=== PATIENT | female | born 1955 | race Caucasian/White ===

== ENCOUNTER 2018-11-04 11:35 | Inpatient (IN) | payer MEDICARE, OTHER ==
[~2018-11-04] VITALS: Ht 170.2 cm; Wt 53.7 kg
[~2018-11-04 11:35] MED LIST: AMLO5 PO; BACL20; BIOTIN5000 MCG PO; CLON.1; CLON.1 PO; D3; D3-20002000 UNIT PO; DOCU100 PO; FENT50TP TOP; FOLI1 PO; Fentanyl1 EAC2; IRON18 MG PO; LEVSOD150; LEVSOD150 PO; LINZESS145 MCG; LIOT5 PO; LOSA25 PO; MAGOXI400 PO; MIDO5 PO; Micro-K10 MEQ; OXYC10TA19; Oxycodone HCl20 M1 PO; Renal Caps Softg1 MG PO; SOMA350 MG PO; VANCOMYCIN125 MG/2.5 PO; VENL150ER; VENL150ER PO; VIT B 12 IM
[2018-11-04 12:16] LABS: BASOPHILS ABSOLUTE AUTO 0.02 K/mm3 (0.00-0.23); BASOPHILS PERCENT AUTO 0 % (0-2); EOSINOPHILS ABSOLUTE AUTO 0.01 K/mm3 (0.00-0.68); EOSINOPHILS PERCENT AUTO 0 % (0-6); Hematocrit 38.4 % (33.0-51.0); Hemoglobin 12.1 g/dL (11.5-16.0); IMMATURE GRAN ABSOLUTE AUTO 0.01 K/mm3 (0.00-0.10); IMMATURE GRAN PERCENT AUTO 0 % (0-1); LYMPHOCYTES PERCENT AUTO 19 % (21-46); MONOCYTES ABSOLUTE AUTO 0.73 K/mm3 (0.16-1.47); MONOCYTES PERCENT AUTO 16 % (4-13); Mean Corpuscular HGB 29.7 pg (26.0-34.0); Mean Corpuscular HGB Conc 31.5 g/dL (31.5-36.5); Mean Corpuscular Volume 94 fL (80-100); Mean Platelet Volume 10.9 fL (9.1-12.4); NEUTROPHILS ABSOLUTE AUTO 3.03 K/mm3 (1.96-9.15); NEUTROPHILS PERCENT AUTO 65 % (41-73); Platelet Count 155 K/mm3 (150-400); RDW Coefficient Variation 13.2 % (11.7-14.2); RDW Standard Deviation 45.8 fL (35.1-46.3); Red Blood Cell Count 4.07 M/mm3 (3.80-5.20)
[2018-11-04 12:42] LABS: Albumin, Blood 3.6 g/dL (3.4-5.0); Albumin/Globulin Ratio 0.9 (0.8-1.8); Bilirubin, Total 0.3 mg/dL (0.1-1.0); Bun/Creatinine Ratio 13.4 (12.0-20.0); Calcium, Blood 8.5 mg/dL (8.5-10.1); Creatinine, Blood 2.46 mg/dL (0.40-1.00); Globulin, Blood 3.8 g/dL (2.2-4.0); Potassium, Blood 3.8 mmol/L (3.5-5.5); Total Protein, Blood 7.4 g/dL (6.4-8.2)
[2018-11-04 12:55] LABS: Troponin I 9.47 ng/mL (0.000-0.040)
--- NOTE | 2018-11-04 14:39 | NUR ---
1325 PT ADMITTED TO ICU-6 VIA BED POST PCI. PT IS HAVING 7/10 CHEST PAIN THAT IS DOWN FROM ADMIT. DR HARRY AWARE. PT DENIES SOB. SR W/O ECTOPY. NS AT 200ML TO FOLLOW. PT ON BED BAPTISTE NEEDING TO VOID, THEN UP TO BSC TO VOID W/O CURRENT RESULTS. R TR SL OOZING AND EXTRA 1ML AIR X3 ADDED WITH FULL REST TO ACHIEVE HEMOSTASIS AND WILL FOLLOW WITH PT RESTING. ECHO IN AND DR CARRILLO IN TO EVALUATE PT. PT IS SL HTN AND WILL CLARRIFY MEDICATION TAKEN THIS DAY AND ORDERED.
--- NOTE | 2018-11-04 14:48 | NUR ---
ECHOCARDIOGRAM COMPLETE
[2018-11-04] MEDS ORDERED: CLON.3 PO (15:24)
[2018-11-04] MEDS ORDERED: OXYC1TAB11 PO (15:26)
[2018-11-04] MEDS ORDERED: CYAN1000I IM (15:28)
[2018-11-04] MEDS ORDERED: XYZAL5 MG PO (15:31)
[2018-11-04] MEDS ORDERED: METO25 PO (15:35)
--- NOTE | 2018-11-04 16:14 | NUR ---
PA AGAIN UP TO BSC AND TR SITE OOZING NOTED. ADITIONAL AIR PLACE AND STABLE FOR NOW. BP MED GIVEN FOR SL ELEVATED BP NOTED. PT NOTES CHEST PAIN TO BE 3/10 AND BETTER. SETTING UP EATING.
--- NOTE | 2018-11-04 17:00 | NUR ---
PT UP TO BSC WITH HR INC. TO 120 RANGE AND C.P. INC TO 6/10. SATS REMAIN STABLE. PT NOTED TO HAVE ST WITH SLOWING TO 80'S RANGE WITH BIGEM PVC. PT TR SITE REMAINS STABLE BUT WILL FOLLOW WITH ALL THE MOVEMENT AND LEAKING PT SITE HAS HAD.
--- NOTE | 2018-11-04 19:28 | NUR ---
PT CHEST PAIN HAD INC TO 7-8/10 AND EKG PLUS MEDICATIONS ORDERED. PT DENIES SOB OR PAIN OTHERWISE AND NO SOB. PT INDICATES THERE IS SOME NAUSEA BUT MINIMAL. LATE SHIFT MEDS GIVEN NOTED AND VS NOTED WITH ELEVATED BP.
--- NOTE | 2018-11-05 01:12 | NUR ---
ASSUMING CARE AND PROGRESS NOTE RECEIVED PT REPORT FROM YANE TATE. PT IS ALERT AND ORIENTED AT THE TIME OF SHIFT REPORT. PT IS ADMITTED DUE TO A STEMI AND IS STATUS POST CARDIAC CATH AND STENT PLACEMENT. PT HAS RIGHT RADIAL ACCESS WITH TR BAND IN PLACE. TR BAND IS FULLY INFLATED. SOME BLOOD NOTED AROUND TR BAND, THOUGH NO DRAINAGE IS NOTED FROM ACCESS SITE. AT THE TIME CARE ASSUMED HEMATOMA NOTED PROXIMAL TO TR BAND. PRESSURE HELD FOR 10 MIN WITH REDUCTION OF HEMATOMA NOTED. PT BP IS IN THE 160-170'S AT THE TIME CARE ASSUMED. PT REPORTED CHEST PAIN OF APPROX 8/10. DR HARRY CALLED AND INFORMED OF PT'S BP, CHEST PAIN AND HEMATOMA. ORDER RECEIVED TO START NITRO GTT TO REDUCE BP TO APPROX 120, AND TO PROVIDE FENTANYL FOR PAIN PRN. NITRO GTT STARTED AT 20MCG/MIN AND TITRATED UP FOR EFFECT. AT APPROX 0021 PT REPORTED NAUSEA, DR HARRY CALLED AND ORDER RECEIVED FOR ZOFRAN. ZOFRAN PROVIDED ORDERED. ORDER RECEIVED TO CHANGE NS AT 200ML/HR TO NS AT TKO. AT APPROX 0040 INCREASED SWELLING WAS NOTED PROXIMAL TO TR BAND. PRESSURE WAS HELD FOR 10MIN WITH A DECREASE IN SWELLING AND FIRMNESS. PT HAS BEEN ABLE TO USE BEDSIDE COMMODE A 1 PERSON ASSIST. AT THIS TIME TR BAND REMAINS FULLY INFLATED. BP IS APPROX 130 SYSTOLIC. WILL MONITOR FOR ANY FURTHER SIGNS OF HEMATOMA, BRUISING, OR SWELLING BEFORE REDUCING TR BAND PRESSURE. PT IS RECEIVING NITRO AT 100 MCG/MIN AND NS AT TKO AT THE TIME OF NOTE. ASSUMED CARE OF PT AT THE TIME OF SHIFT REPORT. WILL CONTINUE TO MONITOR PT.
--- NOTE | 2018-11-05 04:35 | NUR ---
TR BAND. AT APPROX 0230 PT REPORTED INCREASED PAIN TO RIGHT RADIAL SITE. SITE ASSESSED AND SWELLING WAS NOTED TO AREA OF PREVIOUS HEMATOMA AND TO THE THUMB DIRECTLY ABOVE TR BAND. PULSES PRESENT ABOVE AND BELOW TR BAND SITE, AND PULSE OX PRESENT ON INDEX FINGER WITH SPO2 IN THE HIGH 90'S. TR BAND REMOVED AT THAT TIME WITH PRESSURE HELD, TR BAND REPLACED WITH APPROX 8 CC OF AIR TOTAL WITH ASSISTANCE FROM YANE YEAGER AND MACIEJ Moody RN. DR HARRY CALLED AT THAT TIME. DR HARRY INFOMRED OF PAIN AND SWELLING AT SITE. INSTRUCTIONS RECEIVED TO REMOVE TR BAND AND HOLD MANUAL PRESSURE AND ENTER ORDER FOR STAT ULTRASOUND OF RIGHT ARM. ORDER ENTERED RECEIVED. MANUAL PRESSURE HELD FOR APPROX 15MIN AND TRANSPARENT DRESSING APPLIED TO ACCESS SITE. AT APPROX 0330 DR HARRY CAME IN TO UNIT TO ASSESS PT. PT REPORTED STOMACH UPSET AT THAT TIME. VERBAL ORDER FOR MAALOX RECEIVED FROM DR HARRY. ORDER ENTERED RECEIVED. ULTRA SOUND TECH IN TO PERFORM ULTRASOUND ON RIGHT ARM AT APPROX 0345. VERBAL REPORT RECEIVED AT BEDSIDE. REPORT GIVEN TO DR HARRY OF ULTRASOUND FINDINGS. NO NEW ORDERS RECEIVED AT THAT TIME. WILL CONTINUE TO MONITOR.
[2018-11-05 04:59] LABS: Bun/Creatinine Ratio 14.4 (12.0-20.0); Calcium, Blood 7.9 mg/dL (8.5-10.1); Creatinine, Blood 2.01 mg/dL (0.40-1.00); Potassium, Blood 3.9 mmol/L (3.5-5.5)
--- NOTE | 2018-11-05 07:15 | NUR ---
RECEIVED REPORT FROM YANE WALDEN, AND ASSUMED CARE OF PT.
--- NOTE | 2018-11-05 07:38 | NUR ---
SHIFT SUMMARY NOTE PT CONTINUES TO HAVE TRANSPARENT DRESSING IN PLACE TO RIGHT RADIAL ACCESS SITE. PT CONTINUES TO REPORT SOME PAIN TO THE RIGHT WRIST. SITE CONTINUES TO EXHIBIT BRUISING, THOUGH THERE HAS BEEN NO FURHTER HEMATOMA FORMATION AT SITE. PT CONTINUES TO RECEIVE NS AT TKO AND NITROGLYCERIN GTT AT 120MCG/MIN AT THE TIME OF REPORT. PT CONTINUES TO REPORT SOME ONGOING CHEST PAIN AT APPROX 5/10. PT HAS USED THE BEDSIDE COMMODE FREQUENTLY THROUGHOUT THE NIGHT A 1 PERSON ASSIST. AFTER TITRATION OF NITROGLYCERIN GTT PT BP HAS DECREASED TO THE 120-130 RANGE. PT HR HAS MAINTAINED IN THE 60-70'S RANGE THROUGH MOST OF THE NIGHT. PT HAS BEEN NOTED TO HAVE OCCASIONAL PVC'S. WILL REPORT OFF TO ONCOMING DAY SHIFT NURSE.
--- NOTE | 2018-11-05 09:30 | NUR ---
PT REFUSING ANTI-EMBOLIC STOCKINGS, COLACE, AND MIRALAX.
--- NOTE | 2018-11-05 09:45 | NUR ---
DR. PICHARDO AT BEDSIDE FOR EVALUATION.
--- NOTE | 2018-11-05 11:12 | NUR ---
NURSING SUMMARY ALERT AND ORIENTED X 4. LUNGS CLEAR, ROOM AIR. VSS. TEMP 99.0 TEMPORAL. C/O MILD CHEST PAIN AND RIGHT ARM/RADIAL WRIST CARDIAC CATH SITE PAIN AT 3-10, MEDICATING WITH PRN PAIN MEDICATIONS NEEDED, NITROGLYCERIN GTT INFUSING AT 120 MCG/MIN AT BEGINNING OF SHIFT, WEANED DOWN TO 60 MCG/MIN AT THIS TIME. SR ON MONITOR, HR 60'S WITH OCCASSIONAL PAC'S. RIGHT WRIST WITH PUNCTURE SITE, GUAZE DRESSING COVERED WITH OPSITE, ARMBOARD, NOTED BRUISING AROUND WOUND, PAINFUL TO TOUCH/MOVEMENT, NO HEMATOMA OR ACTIVE BLEEDING AT SITE, DRESSING CDI, PT AWARE OF NEED FOR MINIMAL MOVEMENT OF RIGHT ARM. MILD NAUSEA WITH EMESIS, MEDICATED WITH ZOFRAN AND ENCOURAGED CRACKERS AND SMALL BITS OF FOOD. CALLS APPROPRIATELY FOR ASSISTANCE OUT OF BED TO THE BEDSIDE COMMODE, VOIDS FREQUENTLY. TWO IV SITES TO LEFT ARM, LAC 18G INFUSING NITROGLYCERIN GTT AND LEFT FOREARM 20G INFUSING NS AT TKO. AT BEDSIDE.
--- NOTE | 2018-11-05 12:21 | NUR ---
NURSING SUMMARY SINUS RHYTHM ON MONITOR, HR 60'S WITH OCCASSIONAL PAC'S, QT REMAINS STABLE AT 0.44, VSS, DENIES CHEST PAIN/PRESSURE, WEANED NITROGLYCERIN GTT TO OFF AT THIS TIME. PT CONTINUES TO FEEL MILD NAUSEA WITHOUT EMESIS. ENCOURAGED SLOW PO INTAKE AND ANTI-EMETICS. PT VERBALIZED GOOD UNDERSTANDING.
--- NOTE | 2018-11-05 12:42 | NUR ---
CALLED DR. HARRY AND ADVISED THAT PT HAS BEEN IN SR, HR 60'S, WITH OCCASSIONAL PAC'S, QT STABLE AT 0.44, AND WEANED OFF OF THE NITROGLYCERIN GTT, DENIES CHEST PAIN BUT DOES C/O NAUSEA WITHOUT EMESIS, AND ASKED FOR A STATUS CHANGE TO PCU. NEW ORDERS PROVIDED FOR STATUS CHANGE AND PROTONIX PO.
--- NOTE | 2018-11-05 12:43 | NUR ---
DR. SULLIVAN AT BEDSIDE FOR EVALUATION, ADVISED OF CONVERSATION WITH DR. HARRY, IN AGREEMENT WITH NEW ORDERS.
--- NOTE | 2018-11-05 16:52 | NUR ---
Per admit trigger, I met with Tova to offer prayer and encouragement. she was very quiet and withdrawn. Her spouse was at bedside and refused to interact with me. Vanessa declined prayer at this time. I will remain availbale.
--- NOTE | 2018-11-05 18:08 | NUR ---
NURSING SUMMARY ALERT AND ORIENTED X4. SR ON MONITOR, HR 60'S AND 70'S WITH OCCASSIONAL PAC'S, NITRO GTT STOPPED AT 1220 TODAY, BLOOD PRESSURES WITHIN NORMAL LIMITS, DENIES CHEST PAIN AND PRESSURE. RIGHT WRIST CARDIAC CATH SITE WITH GUAZE/OPSITE DRESSING IN PLACE, CDI, NO HEMATOMA OR BLEEDING, DOES HAVE BRUISING AND IS PAINFUL TO THE TOUCH AND WITH MOVEMENT, ARMBOARD IN PLACE. C/O LOWER BACK PAIN, MEDICATED WIT OXYCONTIN PO. LUNGS CLEAR, ROOM AIR. C/O NAUSEA WITHOUT EMESIS, MEDICATING WITH ZOFRAN, MAALOX, AND PROTONIX. VOIDS PER BEDSIDE COMMODE, INDEPENDENTLY. LAC 18G SALINE LOCK AND LFA 20G SALINE LOCK.
--- NOTE | 2018-11-05 19:00 | NUR ---
ASSUME CARE REPORT RECIEVED FROM OFF GOING RN SOFIYA. MONITOR INTACT SHOWING SINUS RHYTHM. HEART RATE 70'S. DENIES DISCOMFORT. TR BAND SITE BRUIESED SWELLING DECREASING. DRESSING DRY AND INTACT. GOOD CAP REFILL AND PULSE. LUNG SOUNDS CLEAR UPPER LOBES WITH SLLIGHTLY DECREASED SOUNDS IN THE BASES. RESPIRATIONS REGULAR AND EASY AT REST ON ROOM AIR. ABDOMEN SOFT WITH BOWEL SOUNDS FOUR QUADS. VOIDS HERMES URINE PER BEDSIDE COMMODE. GAIT STEADY PER SELF. PEDAL PULSES PRESENT NO EDEMA NOTED. CONTINUE TO MONITOR AND REPORT CHANGE IN PATIENT CONDITION.
[2018-11-06 04:22] LABS: BASOPHILS ABSOLUTE AUTO 0.02 K/mm3 (0.00-0.23); BASOPHILS PERCENT AUTO 0 % (0-2); EOSINOPHILS ABSOLUTE AUTO 0.03 K/mm3 (0.00-0.68); EOSINOPHILS PERCENT AUTO 1 % (0-6); Hematocrit 29.3 % (33.0-51.0); Hemoglobin 9.4 g/dL (11.5-16.0); IMMATURE GRAN ABSOLUTE AUTO 0.01 K/mm3 (0.00-0.10); IMMATURE GRAN PERCENT AUTO 0 % (0-1); LYMPHOCYTES ABSOLUTE AUTO 0.76 K/mm3 (0.84-5.20); LYMPHOCYTES PERCENT AUTO 12 % (21-46); MONOCYTES ABSOLUTE AUTO 0.78 K/mm3 (0.16-1.47); MONOCYTES PERCENT AUTO 12 % (4-13); Mean Corpuscular HGB 29.9 pg (26.0-34.0); Mean Corpuscular HGB Conc 32.1 g/dL (31.5-36.5); Mean Corpuscular Volume 93 fL (80-100); Mean Platelet Volume 11.4 fL (9.1-12.4); NEUTROPHILS ABSOLUTE AUTO 4.97 K/mm3 (1.96-9.15); NEUTROPHILS PERCENT AUTO 76 % (41-73); Platelet Count 137 K/mm3 (150-400); RDW Coefficient Variation 13.7 % (11.7-14.2); RDW Standard Deviation 47.1 fL (35.1-46.3); Red Blood Cell Count 3.14 M/mm3 (3.80-5.20); White Blood Cell Count 6.57 K/mm3 (4.00-11.30)
[2018-11-06 04:41] LABS: Anion Gap 7 mmol/L (6-16); Blood Urea Nitrogen 31 mg/dL (8-24); CHOL/HDL RATIO 2.7; CO2, Blood 23 mmol/L (21-32); Calcium, Blood 8.6 mg/dL (8.5-10.1); Chloride, Blood 112 mmol/L (98-108); Cholesterol 119 mg/dL (50-200); Creatinine, Blood 2.38 mg/dL (0.40-1.00); Glomerular Filtration Rate 22 (60-); Glucose, Blood 115 mg/dL (70-99); HDL Cholesterol 44 mg/dL (>39); LDL/HDL RATIO 1.3; Low Density Lipoprotein Chol 59 mg/dL (0-110); Phosphorus, Blood 2.5 mg/dL (2.5-4.9); Potassium, Blood 4.1 mmol/L (3.5-5.5); Sodium, Blood 142 mmol/L (136-145); Triglycerides 82 mg/dL (30-160); Very Low Density Lipoprot Chol 16 mg/dL (6-32)
--- NOTE | 2018-11-06 06:43 | NUR ---
SHIFT SUMMARY: RESTS QUIETLY WHEN UNDISTURBED. AWAKENS EASILY. MONITOR INTACT SHOWING SINUS RHYTHM . HEART RATE 60'S DENIES DISCOMFORT MEDICATED WITH OXYCODONE ONCE THIS SHIFT FOR BACK/LEG PAIN. LUNG SOUNDS CLEAR , RESPIRATIONS REGULAR AND EASY. ON ROOM AIR. ABDOMEN SOFT WITH BOWEL SOUNDS FOUR QUADS. GAIT STEADY TO BSC. VOIDS HERMES URINE. NO EDEMA NOTED. TR BAND SITE BRUISED/TENDER HOWEVER PATIENTS STATES"IT'S BETTER THAN IT WAS". CONTINUE TO MONITOR AND REPORT CHANGE IN PATIENT CONDITION.
--- NOTE | 2018-11-06 09:25 | NUR ---
ASSUMED CARE / DR. HARRY: REPORT RECEIVED FROM SANTY Thompson RN. ASSUMED CARE OF THIS PT AT APPROX 0700. ON ASSESSMENT, THE PT IS AWAKE & SITTING UP IN BED. SHE DENIES PAIN OR DISCOMFORT THIS AM. R RADIAL SITE S/P ANGIO HAS MOD AMNTS BRUISING & IS TENDER TO PALPATION. R WRIST IMMOBILIZER IN PLACE & PT VERBALIZES UNDERSTANDING OF WRIST PRECAUTIONS. PROVIDER AT BEDSIDE TO SEE PT. HE STS THAT SHE IS NOW CLEARED FROM CARDIOLOGY & MAY D/C HOME TODAY IF OKAY W/ HOSPITALIST PROVIDER, DR. DIAZ. WILL CONTINUE TO MONITOR & UPDATE NEEDED.
[2018-11-06] MEDS ORDERED: ATOR40TA PO (12:46)
[2018-11-06] MEDS ORDERED: CLON.1 PO (12:53)
[2018-11-06] MEDS ORDERED: AMLO10 PO (12:53)
[2018-11-06] MEDS ORDERED: CYAN1000I IM (12:56)
[2018-11-06] MEDS ORDERED: FOLI1 PO (12:57)
[2018-11-06] MEDS ORDERED: XYZAL5 MG PO (12:58)
[2018-11-06] MEDS ORDERED: LEVSOD150 PO (13:00)
[2018-11-06] MEDS ORDERED: Percocet 10-321 EACH PO (13:03)
[2018-11-06] MEDS ORDERED: METO50 PO (13:03)
[2018-11-06] MEDS ORDERED: VENL150ER PO (13:06)
[2018-11-06] MEDS ORDERED: ACET325 PO (13:07)
[2018-11-06] MEDS ORDERED: ASPI81CH PO (13:08)
[2018-11-06] MEDS ORDERED: CLOP75 PO (13:09)
[2018-11-06] MEDS ORDERED: NEPHRO-VITE RX1 EACH PO (13:09)
[2018-11-06] MEDS ORDERED: TUMS500 MG PO (13:10)
[2018-11-06] MEDS ORDERED: DOCU100 PO (13:11)
[2018-11-06] MEDS ORDERED: HYDR10 PO (13:12)
[2018-11-06] MEDS ORDERED: MAGOXI400 PO (13:14)
[2018-11-06] MEDS ORDERED: FERROUS SU220 MG/51 PO (13:14)
--- NOTE | 2018-11-06 14:42 | NUR ---
DISCHARGE TO HOME: DISCHARGE TEACHING HAS BEEN COMPLETED, PIV & MONITORS HAVE BEEN REMOVED. R RADIAL SITE PRECAUTIONS HAVE BEEN DISCUSSED W/ PT & SHE VERBALIZES UNDERSTANDING OF THESE PRECAUTIONS. EDUCATIONAL PACKETS HAVE BEEN SENT W/ PT REGARDING THIS TOPIC FOR REFERENCE. ALL BELONGINGS & D/C PACKET HAVE BEEN TAKEN OUT BY PT & PT's SPOUSE. R RADIAL SITE IS UNCHANGED FROM AM ASSESSMENT ON DISCHARGE.
== END 2018-11-06 14:40 | disposition home or self-care (01) | DRG 246 ==
LOC: ER 11:35 → ICUE 12:06 → ICUW 12:06 → ICUE 12:08
PROVIDERS: Emergency Medicine; Hospitalist; Internal Medicine; ADMIT Internal Medicine Interventional Cardiology
PROC: 4A023N7 Measurement of Cardiac Sampling and Pressure, Left Heart, Percutaneous Approach (ICD-10-PCS; principal; 2018-11-04)
PROC: 027035Z Dilation of Coronary Artery, One Artery with Two Drug-eluting Intraluminal Devices, Percutaneous Approach (ICD-10-PCS; 2018-11-04)
PROC: B211YZZ Fluoroscopy of Multiple Coronary Arteries using Other Contrast (ICD-10-PCS; 2018-11-04)
DX: I21.3 ST elevation (STEMI) myocardial infarction of unspecified site (principal); N18.6 End stage renal disease; I12.0 Hypertensive chronic kidney disease with stage 5 chronic kidney disease or end stage renal disease; E03.9 Hypothyroidism, unspecified; M54.9 Dorsalgia, unspecified; G89.4 Chronic pain syndrome
CPT/HCPCS: 36415; 80048; 80053; 80061; 80069; 84484; 85025; 85347; 92978; 93005; 93010; 93306; 93458; 93931; 99152; 99153; 99285-25; C1725; C1753; C1769; C1874; C1887; C1894; C9606; J0153; J0461; J1644; J2250; J2405; J3010; J3246; J7030; Q9967

== ENCOUNTER 2021-05-24 22:29 | Inpatient (IN) | payer OTHER ==
[~2021-05-24] VITALS: Ht 170.2 cm; Wt 55.0 kg
[~2021-05-24 22:29] MED LIST changes: +ACET325 PO; +AMLO10 PO; +ASPI81CH PO; +ATOR40TA PO; +CLON.3 PO; +CLOP75 PO; +CYAN1000I IM; +FERROUS SU220 MG/51 PO; +HYDR10 PO; +METO25 PO; +METO50 PO; +NEPHRO-VITE RX1 EACH PO; +OXYC1TAB11 PO; +Percocet 10-321 EACH PO; +TUMS500 MG PO; +XYZAL5 MG PO
[2021-05-25] MEDS ORDERED: ONDA4ODT MM (01:03)
[2021-05-25 01:59] LABS: Albumin, Blood 2.7 g/dL (3.4-5.0); Albumin/Globulin Ratio 0.8 (0.8-1.8); Bilirubin, Total 0.6 mg/dL (0.1-1.0); Bun/Creatinine Ratio 16.1 (12.0-20.0); Calcium, Blood 9.1 mg/dL (8.5-10.1); Creatinine, Blood 4.15 mg/dL (0.40-1.00); Globulin, Blood 3.5 g/dL (2.2-4.0); Potassium, Blood 4.2 mmol/L (3.5-5.5); Total Protein, Blood 6.2 g/dL (6.4-8.2)
[2021-05-25 02:13] LABS: Hematocrit 44.8 % (33.0-51.0); Hemoglobin 15.6 g/dL (11.5-16.0); Mean Corpuscular HGB 29.9 pg (26.0-34.0); Mean Corpuscular HGB Conc 34.8 g/dL (31.5-36.5); Mean Corpuscular Volume 86 fL (80-100); Platelet Count 221 K/mm3 (150-400); RDW Coefficient Variation 12.8 % (11.7-14.2); Red Blood Cell Count 5.22 M/mm3 (3.80-5.20); White Blood Cell Count 14.58 K/mm3 (4.00-11.30)
[2021-05-25 02:23] LABS: BAND PERCENT MAN 22 % (0-8); BASOPHILS PERCENT MAN 0 % (0-2); EOSINOPHILS PERCENT MAN 0 % (0-6); LYMPHOCYTES ABSOLUTE MAN 0.43 K/mm3 (0.84-5.20); LYMPHOCYTES PERCENT MAN 3 % (21-46); METAMYELOCYTE ABSOLUTE MAN 0.29 K/mm3 (0.00-0.00); METAMYELOCYTE PERCENT MAN 2 % (0-0); MONOCYTES ABSOLUTE MAN 1.02 K/mm3 (0.16-1.47); MONOCYTES PERCENT MAN 7 % (4-13); NEUTROPHILS ABSOLUTE MAN 12.83 K/mm3 (1.96-9.15); SEG NEUTROPHILS PERCENT MAN 66 % (41-73); TOTAL CELLS COUNTED 100
[2021-05-25 02:48] LABS: Magnesium, Blood 1.9 mg/dL (1.6-2.4); Troponin I 0.233 ng/mL (0.000-0.040)
[2021-05-25 03:53] LABS: Source, Urine Clean Catch
[2021-05-25 04:06] LABS: Bilirubin, Urine Neg (Neg); Blood, Urine 1+ (Neg); Glucose Qualitative, Urine 2+ (Neg); Ketones, Urine Neg (Neg); Leukocyte Esterase, Urine Neg (Neg); Nitrite, Urine Neg (Neg); Protein, Urine 3+ (Neg); Urobilinogen, Urine 1+ (Normal)
[2021-05-25 05:14] LABS: Appearance, Urine Clear (Clear); Color, Urine Amber (P-Yellow)
[2021-05-25 05:16] LABS: Amorphous Light (0-Heavy); Bacteria Rare /hpf; Red Blood Cells, Urine 0-2 /hpf (0-2); Squamous Epithelial Cells Not Seen /hpf (Few); White Blood Cells, Urine 0-2 /hpf (0-5)
[2021-05-25 05:34] LABS: Hematocrit 48.3 % (33.0-51.0); Mean Corpuscular HGB 29.3 pg (26.0-34.0); Mean Corpuscular HGB Conc 33.1 g/dL (31.5-36.5); Mean Corpuscular Volume 89 fL (80-100); Mean Platelet Volume 11.2 fL (9.1-12.4); Platelet Count 207 K/mm3 (150-400); RDW Standard Deviation 41.5 fL (35.1-46.3); Red Blood Cell Count 5.46 M/mm3 (3.80-5.20); White Blood Cell Count 10.66 K/mm3 (4.00-11.30)
[2021-05-25 06:05] LABS: BAND PERCENT MAN 29 % (0-8); BASOPHILS PERCENT MAN 0 % (0-2); EOSINOPHILS PERCENT MAN 0 % (0-6); LYMPHOCYTES ABSOLUTE MAN 1.06 K/mm3 (0.84-5.20); LYMPHOCYTES PERCENT MAN 10 % (21-46); METAMYELOCYTE PERCENT MAN 1 % (0-0); MONOCYTES ABSOLUTE MAN 0.42 K/mm3 (0.16-1.47); MONOCYTES PERCENT MAN 4 % (4-13); NEUTROPHILS ABSOLUTE MAN 9.06 K/mm3 (1.96-9.15); SEG NEUTROPHILS PERCENT MAN 56 % (41-73); TOTAL CELLS COUNTED 100
--- NOTE | 2021-05-25 06:28 | NUR ---
SHIFT SUMMARY PT IS ALERT AND ORIENTED. PT WAS VERY PAINFUL UPON ARRIVAL. PT VITALS ARE STABLE. REFUSED CHEST PAIN OR SOB. REPORTED RIGHT SIDED AND LOWER MIDLINE ABDOMINAL PAIN. SHE IS ON 2L NC WITH SATS ABOVE 92%. PT WAS BLADDER SCANNED WITH A READING >311 AND WAS STRAIGHT CATHED WITH 150 OUTPUT. NG WAS PLACED WITH NO RESPIRATORY DISTRESSED. DR. STRONG LOOKED AT XRAY AND CALLED THAT TUBE WAS IN RIGHT BRACHIOLE, TUBE WAS PULLED AFTER CALL. CALL LIGHT IS WITHIN REACH. WILL CONTINUE TO MONITOR.
[2021-05-25 06:45] LABS: Bun/Creatinine Ratio 16.7 (12.0-20.0); Calcium, Blood 8.7 mg/dL (8.5-10.1); Creatinine, Blood 4.14 mg/dL (0.40-1.00); Free Thyroxine 1.15 ng/dL (0.70-1.60); Potassium, Blood 4.5 mmol/L (3.5-5.5); Thyroid Stimulating Hormone 0.022 uIU/mL (0.360-4.800)
--- NOTE | 2021-05-25 12:22 | NUR ---
TRANSFER NOTE PT A&Ox3; CALM AND COOPERATIVE WITH CARE. PT RESTING IN BED DURING SHIFT. PT REPORTS ABD PAIN AND CHEST PAIN; BP SOFT AND HEART RATE 120-130; NOTIIFED DR GRAHAM; NEW ORDER FOR 500CC BOLUS, EKG AND TROP; NOTIFIED DR LIVE OF RESULTS. PT REPORTS HACING AN "UPSET STOMACH" DENIES NEED FOR ZOFRAN. STARTED ON SODIUM BICARB AND ANTIBIOTICS. NO URINE OUTPUT THIS SHIFT, NOTIFIED DR VALENZUELA. DR SHARIF AND DR LAURIE SNYDER OF CONSULTS. OTHER VSS. NO OTHER ACUTE CHANGES NOTED. REPORT GIVEN TO RN ASSUMING CARE OF PATIENT. PT LEFT ROOM AT APPROX 1220.
--- NOTE | 2021-05-25 18:29 | NUR ---
SHIFT SUMMARY PATIENT TRANFERRED FROM PCU AT 1215. PATIENT SETTLED INTO ROOM. PATIENT HAD BICARB RUNNING AT 75 MLS/HR. PATIENT MEDICATED X3 FOR PAIN IN ABDOMEN. GAVE IV FENTANYL, PATIENT STILL REPORTING 10/10 PAIN AND CURLED INTO POSITION. DR. WISDOM CALLED. NEW ORDERS FOR ONE TIME DOSE OF DILAUDID. PATIENT REPORTED THIS MADE PAIN "A LITTLE" BETTER. NEW ORDERS FOR FENTANYL PATCH. TELE CALLED REPORTING SUSTAINED HEART RATE OF 130 AND OCCASSIONAL JUMPS TO 160. BLOOD PRESSURE LOW. DR. WISDOM CALLED, NEW ORDERS FOR 500MLS BOLUS. AFTER BOLUS, GUEST REQUEST RUNNER CALLED AGAIN REPORTING THAT PATIENT WAS SUSTAINING IN THE 140'S NOW WITH JUMPS TO 180. BP 137/94. DR. WISDOM CALLED. NEW ORDERS FOR LOPRESSOR. DR. SHARIF FROM SURGERY CONSULTED TODAY. HE TOLD ME SHE CAN HAVE ICE CHIPS, BUT STILL NPO. DR. GUZMAN FROM CARDIOLOGY CONSULTED TODAY. BLADDER SCAN AT 1800 SHOWED 140MLS IN BLADDER. WILL CONTINUE TO MONITOR PER ORDERS. PATIENT VISITED IN AFTERNOON. PATIENT PLEASANT AND COOPERATIVE WITH CARE.
[2021-05-26 00:12] LABS: C DIFFICILE DNA NEGATIVE (Negative)
--- NOTE | 2021-05-26 04:10 | NUR ---
SHIFT SUMMARY ADMITTED FOR TACHY AND SEPSIS/POSSIBLE ABD INFECTION. FULL CODE. PLAN TO DC WITH SPOUSE ONCE STABLE. TELE: TACHY @127. POWERGLMICHELLE AG. DR. VALENZUELA RENAL SPECIALIST. NPO WITH ICE CHIPS AND PILLS OK. MEDICATED FOR PAIN AND NAUSEA THIS SHIFT PER EMAR. BICARB INFUSING @ 75ML/HR. IV ABX SCHEDULED. SURICAL CONSULT EVALUATING FOR POSSIBLE OSTOMY. CARDIOLOGY CONSULT WILL F/U OUTPATIENT.
[2021-05-26 05:35] LABS: Hematocrit 41.1 % (33.0-51.0); Hemoglobin 14.5 g/dL (11.5-16.0); Mean Corpuscular HGB 29.4 pg (26.0-34.0); Mean Corpuscular HGB Conc 35.3 g/dL (31.5-36.5); Mean Platelet Volume 12.3 fL (9.1-12.4); Platelet Count 178 K/mm3 (150-400); RDW Coefficient Variation 12.9 % (11.7-14.2); Red Blood Cell Count 4.93 M/mm3 (3.80-5.20); White Blood Cell Count 10.64 K/mm3 (4.00-11.30)
[2021-05-26 05:41] LABS: Mean Corpuscular Volume 83 fL (80-100)
[2021-05-26 05:59] LABS: BAND PERCENT MAN 35 % (0-8); BASOPHILS PERCENT MAN 0 % (0-2); EOSINOPHILS PERCENT MAN 0 % (0-6); LYMPHOCYTES ABSOLUTE MAN 0.53 K/mm3 (0.84-5.20); LYMPHOCYTES PERCENT MAN 5 % (21-46); METAMYELOCYTE ABSOLUTE MAN 0.21 K/mm3 (0.00-0.00); METAMYELOCYTE PERCENT MAN 2 % (0-0); MONOCYTES ABSOLUTE MAN 0.53 K/mm3 (0.16-1.47); MONOCYTES PERCENT MAN 5 % (4-13); MYELOCYTE PERCENT MAN 1 % (0-0); NEUTROPHILS ABSOLUTE MAN 9.25 K/mm3 (1.96-9.15); SEG NEUTROPHILS PERCENT MAN 52 % (41-73); TOTAL CELLS COUNTED 100
[2021-05-26 06:10] LABS: Albumin, Blood 1.8 g/dL (3.4-5.0); Anion Gap 15 mmol/L (6-16); Blood Urea Nitrogen 78 mg/dL (8-24); Bun/Creatinine Ratio 20.5 (12.0-20.0); CO2, Blood 19 mmol/L (21-32); Calcium, Blood 7.4 mg/dL (8.5-10.1); Chloride, Blood 101 mmol/L (98-108); Creatinine, Blood 3.81 mg/dL (0.40-1.00); Glomerular Filtration Rate 12 (60-); Glucose, Blood 110 mg/dL (70-99); Phosphorus, Blood 5.3 mg/dL (2.5-4.9); Sodium, Blood 135 mmol/L (136-145)
--- NOTE | 2021-05-26 17:27 | NUR ---
PT IS A/OX3, PLEASANT AND COOPERATIVE, THE PT TODAY HAS BEEN BEDREST. PT WAS MEDICATED FOR ABD PAIN T/O THE DAY. PT WAS MEDICATED FOR NAUSEA X1 SO FAR TODAY. THE PT ATTEMPTED TO GET UP FROM THE BED THIS AFTERNOON , HOWEVER SHE BECAME VERY LIGHT HEADED AND LETHARGIC. BP TALEN 110/74 PT RECOVERED FAIRLY QIUKLY AFTER LYING DOWN. PTS IS AT THE BEDSIDE , CALL LIGHT IN REACH, WILL CONTINUE TO MONITOR AND ASSESS FOR CHANGES
--- NOTE | 2021-05-26 20:06 | NUR ---
ASSUMED CARE. APPEARS FRAIL, WEAK. WITH EMESIS BAG IN HAND, CLEAR EMESIS AND DRY HEVING. JUST GOT OFF THE BEDPAN, VOIDING OK. SMALL-MEDIUM BM TODAY. STATES ABDOMINAL PAIN, TENDERNESS. BT HYPOACTIVE. LUNG SOUNDS CLEAR. HR PER TELE IN 80'S WITH PVC AND PAC'S. NO CHEST PAIN AT THIS TIME. IV SL IN FOOT. BICARB INFUSING INTO POWER GLIDE IN LEFT UPPER ARM. ZOFRAN GIVEN, PM MEDS ADMINISTERED. BP GOOD AT THIS TIME. WILL CONTINUE TO MONITOR.
--- NOTE | 2021-05-26 20:54 | NUR ---
RECEIVED CALL FROM TELE REPORTING A 30 SEC RUN OF V-TACH. PATIENT IS RESTING IN THE ROOM. NO SIGN OF CARDIAC DISTRESS. WILL CONTINUE TO MONITOR.
[2021-05-27 04:53] LABS: Hematocrit 38.7 % (33.0-51.0); Hemoglobin 13.8 g/dL (11.5-16.0); Mean Corpuscular HGB 29.1 pg (26.0-34.0); Mean Corpuscular HGB Conc 35.7 g/dL (31.5-36.5); Mean Corpuscular Volume 82 fL (80-100); Platelet Count 144 K/mm3 (150-400); RDW Coefficient Variation 12.7 % (11.7-14.2); RDW Standard Deviation 37.8 fL (35.1-46.3); Red Blood Cell Count 4.75 M/mm3 (3.80-5.20); White Blood Cell Count 9.94 K/mm3 (4.00-11.30)
--- NOTE | 2021-05-27 05:48 | NUR ---
SHIFT SUMMARY: ILL APPEARING FEMALE ADMITTED FOR COLITIS, CONSTIPATION. CONTINUES TO HAVE NAUSEA, BUT WHAT SHE CONSIDERS TO BE EMESIS IS MORE LIKE SILIVA AND SCANT AMOUNTS OF BILE. SHEHAS COMPLAINED OF SEVERAL THINGS SUCH "A KNOT IN HER CHEST GETTING BIGGER". DID NOT FEEL ANYTHING ON PALPITATION. CHEST PAIN, ALL VITALS WERE GOOD AND TELE REPORTED SINUS TACH AT 100 AT THAT TIME. NO EVENTS. SHE DOES NOT SLEEP. APPETITE IS VERY POOR. INCONTINENT OF BOWEL AND URINE. BM ARE SOFT PUDDING BROWN IN COLOR. CONTINUOUS IV BICARB. ABDOMINAL PAIN IS CONSTANT AND AVERAGES 7-9. VS WNL FOR THE PATIENT. SHE COULD BENIFIT FROM SOME TUMS, NYSTATIN SWISH AND SWOLLOW SHE STATES HER MOUTH IS SORE FROM THE THRUSH. DID NOT SEE THIS EXCEPT SOME REDNESS. CALL LIGHT HAS REMAINED WITH IN REACH.
[2021-05-27 05:53] LABS: Albumin, Blood 1.6 g/dL (3.4-5.0); Anion Gap 17 mmol/L (6-16); Blood Urea Nitrogen 81 mg/dL (8-24); Bun/Creatinine Ratio 21.7 (12.0-20.0); CO2, Blood 26 mmol/L (21-32); Chloride, Blood 92 mmol/L (98-108); Creatinine, Blood 3.74 mg/dL (0.40-1.00); Glomerular Filtration Rate 12 (60-); Glucose, Blood 126 mg/dL (70-99); Magnesium, Blood 2.2 mg/dL (1.6-2.4); Phosphorus, Blood 5.6 mg/dL (2.5-4.9); Potassium, Blood 3.5 mmol/L (3.5-5.5); Sodium, Blood 135 mmol/L (136-145)
[2021-05-27 06:01] LABS: BAND PERCENT MAN 35 % (0-8); BASOPHILS PERCENT MAN 0 % (0-2); EOSINOPHILS PERCENT MAN 0 % (0-6); METAMYELOCYTE ABSOLUTE MAN 0.09 K/mm3 (0.00-0.00); METAMYELOCYTE PERCENT MAN 1 % (0-0); MONOCYTES ABSOLUTE MAN 0.19 K/mm3 (0.16-1.47); MONOCYTES PERCENT MAN 2 % (4-13); MYELOCYTE ABSOLUTE MAN 0.09 K/mm3 (0.00-0.00); MYELOCYTE PERCENT MAN 1 % (0-0); NEUTROPHILS ABSOLUTE MAN 9.54 K/mm3 (1.96-9.15); SEG NEUTROPHILS PERCENT MAN 61 % (41-73); TOTAL CELLS COUNTED 100
--- NOTE | 2021-05-27 10:16 | NUR ---
JEWEL DIAMETER GAUGER CALLED PT WAS LYING UP IN BED HOB ELEVATED PT WAS LETHARGIC, NOT ABLE TO DIRECTLY ANSWER QUESTIONS. VS TAKEN BLOOD PRESSURE WAS 67/27 AFTER CHECKING X2. THE PT WAS LAID ON HER BACK HEAD FLAT AN JEWEL DIAMETER GAUGER WAS CALLED. THE PT BP CAME UP 107/70 PT BECAME MORE RESPONSIVE. DR. MARRERO CAME TO SEE THE PT A 250 CC BOLUS WAS GIVEN. CALL LIGHT IN REACH WILL CONTINUE TO MONITOR AND ASSESS FOR CHANGES
--- NOTE | 2021-05-27 17:14 | NUR ---
PT IS A/OX3, PLEASANT AND COOPERATIVE. THE PT HAS BEEN BEDREST TODAY. PT DID NOT WORK WITH THE PT DUE TO SOME SYNCOPE EARLIER TODAY AND POSSIBLE ORTOSTATIC HYPOTENSION. THE PT WAS GIVEN A NS 250CC BOLUS AND HAS SINCE BEEN MORE ALERT THIS AFTERNOON. THE PT APPEARS TO BE BREATHING EASILY ON RA. THE PT CONTINUES TO REPORT ABD PAIN AND WAS MEDICATED FOR PAIN X 1 THIS AFTERNOON. THE PT IS REPORTING THAT HER TONGUE CONTINUES TO BE PAINFULL DESPIT PAIN MEDICATION AND THE SCHEDULED NYSTATIN. A CALL WAS MADE TO DR. MARRERO PER THE PTS REQUEST AND MAGIC MOUTH WASH WAS ORDERED. THE PTS IS AT THE BEDSIDE. CALL LIGHT IN REACH WILL CONTINUE TO MONITOR AND ASSESS FOR CHANGES
--- NOTE | 2021-05-28 03:41 | NUR ---
PATIENT HAS BEEN PLEASANT AND COOPERATIVE WITH STAFF. N/V NOTED FROM THE ONSET OF MY SHIFT AND PATIENT WAS MEDICATED WITH IV PHENERGAN WITH SOME RESULTS. PATIENT DECLINED HS MIRALAX WELL THE HS DOSE OF SQ HEPARIN FOR DVT PROPHY STATING THAT SHE DIDN'T FEEL IT WAS NECESSARY SINCE SHE ALREADY RECIEVED TWO DOSES TODAY. PATIENT IS MILDLY ON THE TACHY SIDE, LOW 100s, OTHERWISE VS STABLE AND WNL. PATIENT CONTINUES ON IV ABX WITHOUT S/SX ADVERSE REACTIONS NOTED OR REPORTED. PATIENT SEEMS TO BE SLEEPING WELL AT THIS TIME. CALL LIGHT WITHIN REACH.
[2021-05-28 05:56] LABS: BASOPHILS ABSOLUTE AUTO 0.06 K/mm3 (0.00-0.23); BASOPHILS PERCENT AUTO 1 % (0-2); Hematocrit 36.1 % (33.0-51.0); Hemoglobin 12.7 g/dL (11.5-16.0); LYMPHOCYTES PERCENT AUTO 11 % (21-46); MONOCYTES ABSOLUTE AUTO 0.42 K/mm3 (0.16-1.47); MONOCYTES PERCENT AUTO 7 % (4-13); Mean Corpuscular HGB 29.3 pg (26.0-34.0); Mean Corpuscular HGB Conc 35.2 g/dL (31.5-36.5); Mean Corpuscular Volume 83 fL (80-100); Mean Platelet Volume 12.7 fL (9.1-12.4); Platelet Count 109 K/mm3 (150-400); RDW Coefficient Variation 13.1 % (11.7-14.2); RDW Standard Deviation 40.1 fL (35.1-46.3); Red Blood Cell Count 4.34 M/mm3 (3.80-5.20)
[2021-05-28 06:11] LABS: EOSINOPHILS ABSOLUTE AUTO 0.01 K/mm3 (0.00-0.68); EOSINOPHILS PERCENT AUTO 0 % (0-6); IMMATURE GRAN ABSOLUTE AUTO 0.06 K/mm3 (0.00-0.10); IMMATURE GRAN PERCENT AUTO 1 % (0-1); NEUTROPHILS ABSOLUTE AUTO 4.95 K/mm3 (1.96-9.15); NEUTROPHILS PERCENT AUTO 80 % (41-73)
[2021-05-28 06:27] LABS: Albumin, Blood 1.7 g/dL (3.4-5.0); Anion Gap 19 mmol/L (6-16); Blood Urea Nitrogen 86 mg/dL (8-24); Bun/Creatinine Ratio 22.5 (12.0-20.0); CO2, Blood 25 mmol/L (21-32); Calcium, Blood 7.4 mg/dL (8.5-10.1); Chloride, Blood 95 mmol/L (98-108); Creatinine, Blood 3.82 mg/dL (0.40-1.00); Glomerular Filtration Rate 12 (60-); Glucose, Blood 97 mg/dL (70-99); Magnesium, Blood 2.5 mg/dL (1.6-2.4); Phosphorus, Blood 7.1 mg/dL (2.5-4.9); Potassium, Blood 2.9 mmol/L (3.5-5.5); Sodium, Blood 139 mmol/L (136-145)
[2021-05-28 07:07] LABS: BAND PERCENT MAN 6 % (0-8); BASOPHILS PERCENT MAN 0 % (0-2); EOSINOPHILS PERCENT MAN 0 % (0-6); LYMPHOCYTES ABSOLUTE MAN 0.49 K/mm3 (0.84-5.20); LYMPHOCYTES PERCENT MAN 8 % (21-46); MONOCYTES ABSOLUTE MAN 0.18 K/mm3 (0.16-1.47); MONOCYTES PERCENT MAN 3 % (4-13); NEUTROPHILS ABSOLUTE MAN 5.51 K/mm3 (1.96-9.15); SEG NEUTROPHILS PERCENT MAN 83 % (41-73); TOTAL CELLS COUNTED 100
--- NOTE | 2021-05-28 17:45 | NUR ---
RESPONDED TO CUT OFF OPERATOR SCORER AND CODE BLUE. RNS IN ROOM. FOUND PT W/O PULSE. INITIATED CPR (COMPRESSIONS). RT ASSIST- BAGGING W/ 100% AMBU BAG WAS ALSO INITIATED. ORALLY SUCTION FOR COPIOUS AMOUNTS OF FLUID W/ PT'S HEAD TURNED TO SIDE. DR AT BEDSIDE FOR INTUBATION. INTUBATION X 2 ATTEMPTS. VISUALIZED AND AUSCULTATED FOR POSITION. TRANSFERRED TO ICU WHILE AMBU BAG ON 100%. SATS 100%.
--- NOTE | 2021-05-28 17:48 | NUR ---
code ABOUT 1615 THE PT REPORTED THAT SHE WAS HAVING INCREASED CHEST PAIN ON THE LEFT SIDE UNDER HER BREAST. A CALL WAS MADE TO DR. AYLIN MALDONADO AND A STAT EKG AND TROPONIN WAS ORDERED. DURING PLACEMENT OF THE EKG AND WITHIN 2 MINIUTES OF GIVEING A NITRO THE PATIENT SLUMMPED OVER. BECAME UNRESPONSIVE AND STOPPED BREATHING AND VOMITED. THE CODE WAS ACTIVATED. AFTER THE CODE THE PT WAS TRANSFERED TO THE ICU. THE PTS WAS AT THE BEDSIDE DURING THE CODE AND THE TRANSFER
[2021-05-28 18:01] LABS: Calcium, Blood 7.8 mg/dL (8.5-10.1); Creatinine, Blood 3.66 mg/dL (0.40-1.00); Potassium, Blood 3.3 mmol/L (3.5-5.5)
[2021-05-28 18:25] LABS: Source, Urine Catheter
[2021-05-28 18:30] LABS: Appearance, Urine Cloudy (Clear); Blood, Urine 1+ (Neg); Color, Urine Amber (P-Yellow); Glucose Qualitative, Urine Neg (Neg); Ketones, Urine 1+ (Neg); Leukocyte Esterase, Urine 2+ (Neg); Nitrite, Urine Pos (Neg); Protein, Urine 2+ (Neg); Urobilinogen, Urine 1+ (Normal)
[2021-05-28 18:32] LABS: Bilirubin, Urine 1+ (Neg)
[2021-05-28 18:32] LABS: Hematocrit 35.2 % (33.0-51.0); Hemoglobin 11.7 g/dL (11.5-16.0); Mean Corpuscular HGB 29.3 pg (26.0-34.0); Mean Corpuscular HGB Conc 33.2 g/dL (31.5-36.5); Platelet Count 108 K/mm3 (150-400); RDW Coefficient Variation 13.4 % (11.7-14.2); RDW Standard Deviation 43.5 fL (35.1-46.3); White Blood Cell Count 7.77 K/mm3 (4.00-11.30)
[2021-05-28 18:33] LABS: Mean Corpuscular Volume 88 fL (80-100)
[2021-05-28 18:37] LABS: Amorphous Mod (0-Heavy); Bacteria Many /hpf
[2021-05-28 18:38] LABS: Red Blood Cells, Urine 0-2 /hpf (0-2); Squamous Epithelial Cells Rare /hpf (Few)
[2021-05-28 18:43] LABS: PCO2 Arterial 37.2 mmHg (35-45); PO2 Arterial 318 mmHg (80-100)
[2021-05-28 19:04] LABS: BAND PERCENT MAN 10 % (0-8); BASOPHILS PERCENT MAN 0 % (0-2); EOSINOPHILS ABSOLUTE MAN 0.07 K/mm3 (0.00-0.68); EOSINOPHILS PERCENT MAN 1 % (0-6); LYMPHOCYTES ABSOLUTE MAN 1.32 K/mm3 (0.84-5.20); LYMPHOCYTES PERCENT MAN 17 % (21-46); METAMYELOCYTE ABSOLUTE MAN 0.07 K/mm3 (0.00-0.00); METAMYELOCYTE PERCENT MAN 1 % (0-0); MONOCYTES ABSOLUTE MAN 0.31 K/mm3 (0.16-1.47); MONOCYTES PERCENT MAN 4 % (4-13); MYELOCYTE ABSOLUTE MAN 0.07 K/mm3 (0.00-0.00); MYELOCYTE PERCENT MAN 1 % (0-0); SEG NEUTROPHILS PERCENT MAN 66 % (41-73); TOTAL CELLS COUNTED 100
--- NOTE | 2021-05-28 19:29 | NUR ---
ASSUMED CARE OF PT AT 1730, PT TRANSFERED TO ICU POST CODE EVENT (SEE CODE BLUE SEET). PT INTUBATED ON THE FLOOR 7.5 ETT, MARKED 25CM AT THE TEETH. VENT SETTINGS ACVC RR14, tV300, FiO2 35% PEEP 5, SpO2 ABOVE 90%. UPON ARRIVAL PT SBP IN THE 80'S, MAP 60, PT GIVEN 500ML BOLUS NS ON THE MEDICAL FLOOR. LEVOPHED STARTED AT 2MCG/MIN, ORDERED FOR ANOTHER 500ML NS BOLUS, SBP 120'S, MAP ABOVE 65, LEVOPHED STOPPED. GAG/COUGH REFLEX PRESENT ON TIME OF ARRIVAL. OGT WAS ATTEMPTED 3 TIMES, UNSUCCESSFUL. NGT PLACED BY CHARGE NURSE. X-RAY DEMONSTARTED GOOD PLACEMENT FOR ETT/NGT, OKAYED TO PLACE NGT TO LIS, 600ML GEEN OUTPUT NOTED. PORTILLO PLACED, DARK HERMES COLORED URINE NOTED. REPORT GIVEN TO ONCOMING SHIFT.
--- NOTE | 2021-05-28 20:12 | NUR ---
DR. MCMANUS AT BEDSIDE EKG OBTAINED. BEDSIDE ECHO BEING PERFORMED.
--- NOTE | 2021-05-28 21:24 | NUR ---
ASSUMED CARE @1900 PATIENT HAS RIGHT UPWARD GAZE. PUPILS REACTIVE BUT SLUGGISH. STARTED DECEREBATE POSTURING AT 1930. NO COUGH OR GAG REFLEX. 02 SATS 93% ON VENT AC VC+ 14/300/5/35%. RR 20s. PATIENT STACKING BREATHS. LUNGS ARE DIMINISHED BUT CLEAR WITH A RIGHT LOWER RUB. HR ST 110-120s. BP STABLE, LEVO ON SB. PULSES FAINT IN BLE. NO BOWEL TONES X4 QUADRANTS. NG TO LOW INTERMITTEN SUCTION, COPIOUS BROWN OUTPUT, PER DR. GODINEZ NO MEDS PER TUBE. PER DAYSHIFT PATIENT HAD SMALL BM TODAY. PORTILLO DRAINING DARK HERMES URINE. SKIN C/D/I. DR. GODINEZ AND DR. MCMANUS TO ROOM TO ASSESS PATIENT. EKG DONE. SON TO ROOM AND DR. GODINEZ UPDATED HIM ON PATIENT CONDITION. REPOSITIONED PATIENT AND ORAL CARE PROVIDED.
[2021-05-29 01:48] LABS: Hematocrit 33.1 % (33.0-51.0); Hemoglobin 11.4 g/dL (11.5-16.0); Mean Corpuscular HGB 29.5 pg (26.0-34.0); Mean Corpuscular HGB Conc 34.4 g/dL (31.5-36.5); Mean Corpuscular Volume 86 fL (80-100); Mean Platelet Volume 12.7 fL (9.1-12.4); Platelet Count 75 K/mm3 (150-400); RDW Coefficient Variation 13.2 % (11.7-14.2); RDW Standard Deviation 41.3 fL (35.1-46.3); Red Blood Cell Count 3.86 M/mm3 (3.80-5.20); White Blood Cell Count 4.89 K/mm3 (4.00-11.30)
[2021-05-29 02:18] LABS: BAND PERCENT MAN 7 % (0-8); BASOPHILS PERCENT MAN 0 % (0-2); EOSINOPHILS PERCENT MAN 0 % (0-6); LYMPHOCYTES ABSOLUTE MAN 0.48 K/mm3 (0.84-5.20); LYMPHOCYTES PERCENT MAN 10 % (21-46); METAMYELOCYTE ABSOLUTE MAN 0.04 K/mm3 (0.00-0.00); METAMYELOCYTE PERCENT MAN 1 % (0-0); MONOCYTES ABSOLUTE MAN 0.44 K/mm3 (0.16-1.47); MONOCYTES PERCENT MAN 9 % (4-13); MYELOCYTE ABSOLUTE MAN 0.04 K/mm3 (0.00-0.00); MYELOCYTE PERCENT MAN 1 % (0-0); NEUTROPHILS ABSOLUTE MAN 3.86 K/mm3 (1.96-9.15); SEG NEUTROPHILS PERCENT MAN 72 % (41-73); TOTAL CELLS COUNTED 100
[2021-05-29 02:24] LABS: Albumin, Blood 1.4 g/dL (3.4-5.0); Anion Gap 13 mmol/L (6-16); Blood Urea Nitrogen 84 mg/dL (8-24); Bun/Creatinine Ratio 24.1 (12.0-20.0); CO2, Blood 22 mmol/L (21-32); Calcium, Blood 7.5 mg/dL (8.5-10.1); Chloride, Blood 108 mmol/L (98-108); Creatinine, Blood 3.48 mg/dL (0.40-1.00); Glomerular Filtration Rate 13 (60-); Glucose, Blood 94 mg/dL (70-99); Magnesium, Blood 2.1 mg/dL (1.6-2.4); Phosphorus, Blood 4.4 mg/dL (2.5-4.9); Potassium, Blood 3.5 mmol/L (3.5-5.5); Sodium, Blood 143 mmol/L (136-145)
--- NOTE | 2021-05-29 06:03 | NUR ---
SHIFT SUMMARY PATIENT OPENS EYES TO PRESSURE/PAINFUL STIMULI. MOVES HEAD, UNABLE TO MOVE EXTREMETIES OR FOLLOW COMMANDS. PUPILS REACTIVE BUT SLUGGISH. 02 SATS 97% ON VENT AC VC+ 14/300/5/35%, RR 20s. LUNGS CLEAR/DIM. HR ST 110, HR DROPS TO 50s-60s FOR LESS THAN A MINUTE THEN GOES BACK UP TO 110. BP STABLE. NG TUBE TO LOW INTERMITTEN SUCTION, 1100 MLS BROWN OUTPUT THIS SHIFT, UNABLE TO HEAR BOWEL TONES X4 QUADRANTS. PORTILLO DRAINING DARK TEA COLORED URINE. TURNED Q2 HOURS.
--- NOTE | 2021-05-29 19:10 | NUR ---
Unresponsive in AM, more responsive couple hours after, pupils brisk 4mm on L/3mm on R, does not follow commands or track, visual threat present, withdraws from pain all 4 extremeties, propofol initiated, went into afib RVR rate 150s sustained, amio bolus plus maintainence with NSR conversion, +1 weak pulses, BP WNL this shift, dim lungs, scant secretions, restraints initiated for trying to pull ET tube, abdomen flat w/ hypoactive bowels, tender all 4 quadrants, CT completed with evidence of stool accumulation improved from last image, remains NPO, 300cc dark gastric output, UOP minimal 27 ml/hr, MD aware, bumex and albumin given, q2 turns completed for skin integrity, electrolytes replaced, family updated on care.
--- NOTE | 2021-05-29 20:14 | NUR ---
ASSUMED CARE @1900 PATIENT OPENS EYES SPONTANEOUSLY AND TO PRESSURE. UNABLE TO FOLLOW COMMANDS, MOVEMENT IN ALL EXTREMETIES, VERY WEAK. PROPOFOL INF 50 MCG/KG/MIN. BILATERAL WRIST RESTRAINT IN PLACE TO PROTECT LINES AND TUBES. 02 SATS 99% ON VENT AC VC+ 14/300/5/35%, LUNGS SOUND CLEAR TO DIMINISHED IN THE BASES, RR 15-20. ET TUBE 24 AT THE TEETH, RT TO ROOM TO ADJUST TUBE, NOW BACK AT 25 AT THE TEETH. HR SR @80s, AMIO gtt INF 0.5 MG/MIN. BP STABLE. PULSES WEAK T/O, STRONG IN LEFT RADIAL. NG TUBE TO LIS, DRAINING LARGE AMOUNTS OF BROWN DRAINAGE. ABDOMEN TENDER AND BOWEL TONES HYPOACTIVE. PORTILLO DRAINING DARK HERMES URINE. REPOSITIONED PATIENT. SEE SHIFT ASSESSMENT FOR MORE DETAIL.
[2021-05-30 01:29] LABS: Hematocrit 28.5 % (33.0-51.0); Hemoglobin 9.5 g/dL (11.5-16.0); Mean Corpuscular HGB 29.5 pg (26.0-34.0); Mean Corpuscular HGB Conc 33.3 g/dL (31.5-36.5); Mean Corpuscular Volume 89 fL (80-100); RDW Coefficient Variation 13.9 % (11.7-14.2); RDW Standard Deviation 45.8 fL (35.1-46.3); Red Blood Cell Count 3.22 M/mm3 (3.80-5.20); White Blood Cell Count 3.11 K/mm3 (4.00-11.30)
[2021-05-30 01:31] LABS: Mean Platelet Volume 13.1 fL (9.1-12.4); Platelet Count 48 K/mm3 (150-400)
[2021-05-30 01:51] LABS: BAND PERCENT MAN 3 % (0-8); BASOPHILS PERCENT MAN 0 % (0-2); EOSINOPHILS PERCENT MAN 0 % (0-6); LYMPHOCYTES ABSOLUTE MAN 0.37 K/mm3 (0.84-5.20); LYMPHOCYTES PERCENT MAN 12 % (21-46); MONOCYTES ABSOLUTE MAN 0.12 K/mm3 (0.16-1.47); MONOCYTES PERCENT MAN 4 % (4-13); MYELOCYTE ABSOLUTE MAN 0.03 K/mm3 (0.00-0.00); MYELOCYTE PERCENT MAN 1 % (0-0); NEUTROPHILS ABSOLUTE MAN 2.58 K/mm3 (1.96-9.15); SEG NEUTROPHILS PERCENT MAN 80 % (41-73); TOTAL CELLS COUNTED 100
[2021-05-30 02:16] LABS: Albumin, Blood 1.7 g/dL (3.4-5.0); Anion Gap 15 mmol/L (6-16); Blood Urea Nitrogen 50 mg/dL (8-24); Bun/Creatinine Ratio 15.6 (12.0-20.0); CO2, Blood 21 mmol/L (21-32); Calcium, Blood 7.4 mg/dL (8.5-10.1); Chloride, Blood 108 mmol/L (98-108); Glomerular Filtration Rate 15 (60-); Glucose, Blood 103 mg/dL (70-99); Magnesium, Blood 1.5 mg/dL (1.6-2.4); Phosphorus, Blood 4.2 mg/dL (2.5-4.9); Potassium, Blood 3.1 mmol/L (3.5-5.5); Sodium, Blood 144 mmol/L (136-145)
--- NOTE | 2021-05-30 03:14 | NUR ---
CALLED HOSPITALIST REGARDING PLT OF 48, ORDERS TO D/C LOVENOX AND CHANGE TO SCDs. CONFIRMED ORDER WITH DR. MCMANUS WHO ORDERED THE LOVENOX. SCDs ON PATIENT, LOVENOX DC'd.
--- NOTE | 2021-05-30 05:45 | NUR ---
SHIFT SUMMARY PATIENT NEURO STATUS UNCHANGED, OPENS EYES SPONTANEOUSLY AND TO PRESSURE, UNABLE TO FOLLOW COMMANDS. WEAK MOVEMENT IN ALL EXTREMETIES. 02 SATS 99% ON VENT 14/300/5/35%, RR 14-20. LUNGS SOUND CLEAR TO DIMINISHED. BP STABLE. HR SR @80s, IRREGULAR AT TIMES. AMIO gtt DC'd. DIGOXIN TO BE STARTED IN AM. NG TUBE TO LIS, 350 OF BROWN OUTPUT. NO BM. PORTILLO DRAINING ADVERTISING CONSULTANT HERMES URINE. BILATERAL SOFT WRIST RESTRAINTS REMAIN ON. BATH DONE THIS SHIFT. REPOSITIONED Q2 HOURS.
[2021-05-30 14:50] LABS: Mean Platelet Volume 13.1 fL (9.1-12.4)
[2021-05-30 14:55] LABS: Platelet Count 48 K/mm3 (150-400)
--- NOTE | 2021-05-30 17:51 | NUR ---
INTUBATED IN AM, SATS WNL ON SPONTANEOUS, FOLLOWS COMMANDS, WEAK UPON ASSESSMENT R SIDE, CT HEAD OBTAINED NEGATIVE FOR STROKE, EXTUBATED 1345, TOLERATING 2L NC, SLURRED SPEACH POST EXTUBATION, FOLLOWS COMMANDS ALL 4 EXTREMETIES BUT WEAK, AOX2 TO PERSON/PLACE, PAIN CONTROL ISSUES ABDOMEN TENDER FACIAL GRIMACING/MOANING, 25MCG FENT IV X2 GIVEN, FENT PATCH L ARM NO LONGER USABLE D/T TURNS/ADHESIVE, NEW PATCH R ARM APPLIED, K PAD HEAT THERAPY TO ABDOMEN, PAIN IMPROVED, AFIB RVR IN AM 140/150S, DIGOXIN IV GIVEN WITH NSR/ST CONVERSION, METOPROLOL 2.5MG GIVEN FOR ST 110/120S, BP WNL, NG SIGNIFICANT DARK/GREEN OUTPUT, UOP ADEQUATE HERMES, PRESENT AND UPDATED ON CARE.
--- NOTE | 2021-05-30 21:25 | NUR ---
ASSUMED CARE @1900 PATIENT IS ALERT AND ORIENTED TO SELF ONLY, DRAOWSY AND SPEECH IS SLURRED/MUMBLES. ABLE TO FOLLOW COMMANDS, SUPERVISOR WRAPPING ROOM WEAK, RIGHT SIDE MAY BE WEAKER THAN LEFT. ABLE TO MOVE LOWER EXTREMETIES. PATIENT MOANS OUT AT TIMES. MEDICATED FOR PAIN PER EMAR. 02 SATS 98% ON 2L VIA NC. LUNGS SOUND CLEAR TO DIMINISHED. HR A.FIB 90s-110. BP HYPERTENSIVE AT TIMES. NG TO LIS, BROWN OUTPUT CONTINUES. PORTILLO DRAINING HERMES URINE. REPOSITON Q2 HOURS. CALL LIGHT IN REACH. SEE ASSESSMENT FOR MORE DETAIL.
--- NOTE | 2021-05-31 02:05 | NUR ---
@0000- PATIENT PULLED OUT NG TUBE. RESTRAINTS REAPPLIED AND NG REINSERTED, PLACEMENT CHECKED WITH ASCULTATION, AND BILE RETURN THROUGH TUBE. X-RAY TO BE DONE THIS AM.
[2021-05-31 03:45] LABS: Hematocrit 30.1 % (33.0-51.0); Hemoglobin 9.8 g/dL (11.5-16.0); Mean Corpuscular HGB 29.2 pg (26.0-34.0); Mean Corpuscular HGB Conc 32.6 g/dL (31.5-36.5); Mean Corpuscular Volume 90 fL (80-100); RDW Coefficient Variation 13.9 % (11.7-14.2); RDW Standard Deviation 46.1 fL (35.1-46.3); Red Blood Cell Count 3.36 M/mm3 (3.80-5.20); White Blood Cell Count 3.79 K/mm3 (4.00-11.30)
[2021-05-31 04:06] LABS: Mean Platelet Volume 13.1 fL (9.1-12.4); Platelet Count 42 K/mm3 (150-400)
[2021-05-31 04:42] LABS: Albumin, Blood 1.5 g/dL (3.4-5.0); Anion Gap 12 mmol/L (6-16); Blood Urea Nitrogen 68 mg/dL (8-24); Bun/Creatinine Ratio 23.1 (12.0-20.0); CO2, Blood 22 mmol/L (21-32); Calcium, Blood 7.2 mg/dL (8.5-10.1); Chloride, Blood 114 mmol/L (98-108); Creatinine, Blood 2.95 mg/dL (0.40-1.00); Glomerular Filtration Rate 16 (60-); Glucose, Blood 183 mg/dL (70-99); Magnesium, Blood 2.1 mg/dL (1.6-2.4); Phosphorus, Blood 4.1 mg/dL (2.5-4.9); Potassium, Blood 4.1 mmol/L (3.5-5.5); Sodium, Blood 148 mmol/L (136-145)
[2021-05-31 05:51] LABS: Base Excess Venous 1.1 mmol/L; Bicarbonate Venous 25.2 mmol/L (24.0-30.0); PCO2 Venous 36.2 mmHg (38-42); PO2 Venous 45.7 mmHg (38-42); pH Blood Venous 7.45 (7.34-7.37)
[2021-05-31 06:22] LABS: BAND PERCENT MAN 2 % (0-8); BASOPHILS PERCENT MAN 0 % (0-2); EOSINOPHILS ABSOLUTE MAN 0.07 K/mm3 (0.00-0.68); EOSINOPHILS PERCENT MAN 2 % (0-6); LYMPHOCYTES ABSOLUTE MAN 0.15 K/mm3 (0.84-5.20); LYMPHOCYTES PERCENT MAN 4 % (21-46); MONOCYTES ABSOLUTE MAN 0.22 K/mm3 (0.16-1.47); MONOCYTES PERCENT MAN 6 % (4-13); MYELOCYTE ABSOLUTE MAN 0.03 K/mm3 (0.00-0.00); MYELOCYTE PERCENT MAN 1 % (0-0); NEUTROPHILS ABSOLUTE MAN 3.29 K/mm3 (1.96-9.15); SEG NEUTROPHILS PERCENT MAN 85 % (41-73); TOTAL CELLS COUNTED 100
--- NOTE | 2021-05-31 06:22 | NUR ---
SHIFT SUMMARY PATIENT IS ALERT AND ORIENTED TO SELF ONLY. WHE ASKED QUESTIONS SHE MUMBLES AND SLURS SPEECH BUT IS ABLE TO ASK FOR A CUP OF WATER CLEARLY. WEAK FILLING HAULER WEAVING AT START OF SHIFT, PATIENT NOW TURNING SELF AND STRONG FILLING HAULER WEAVING. PATIENT ABLE TO FOLLOW COMMANDS. 02 SATS NOW 96% ON ROOM AIR. LUNGS SOUND COARSE TO DIM IN THE BASES. WEAK COUGH BUT ABLE TO CLEAR UPPER LUNGS A LITTLE. SMALL AMOUNT OF THIN CLEAR SECRETIONS. PATIENT PULLED OUT NG TUBE, TUBE WAS REINSERTED AND PATIENT PLACED IN BILATERAL SOFT WRIST RESTRAINTS BECAUSE SHE KEPT PULLING AT HER LINES AND TUBES. GREEN BILE OUTPUT, X-RAY DONE THIS MORNING. PORTILLO DRAINING HERMES URINE. MEDICATED FOR PAIN PER EMAR. ABDOMEN TENDER TO THE TOUCH. HEATING PAD PROVIDED. CALL LIGHT IN REACH.
--- NOTE | 2021-05-31 17:25 | NUR ---
AOX1 this shift, alert to self, follows commands, strength improved from prior, restratints continued d/t NOC NG pull out, complained of abdominal pain given 25mcg fentx2, NSR VS ST, metoprolol 2.5mg given with 20mg labetelol, HTN improved, RA sats WNL, some coarsness to RUMA lobes otherwise dim, ST assessment still NPO, NG suction DC, abdomen tender, suppository given with no results, bowels hypoactive, UOP adequate isac, Pt made PCU status awaiting bed, case discussed with MD Gregory, MRI w/o contrast ordered, awaiting time/coordination.
--- NOTE | 2021-06-01 01:48 | NUR ---
SHIFT SUMMARY PATIENT TRANSFERED TO PCU 15 AT APPROXIMETLY 0140. A&O TO SELF AND UNABLE TO ASSESS REST OF ORIENTATION PATIENT HAS SEVERE DYSPHAGIA R/T CVA. ONLY ABLE TO REQUEST WATER AND NODS YES OR NO TO QUESTIONS. FOLLOWS SOME COMMANDS. MOVES ALL EXTREMETIES WITH GENERALIZED WEAKNESS IN LOWER EXTREMETIES. RESTRAINTS IN PLACE PATIENT CONTINUES TO TRY TO PULL LINES. LOOSENED RESTRAINTS TO TRAIL GETTING THEM OFF AND PATIENT AGAIN REMOVED HER NG THAT WAS CLAMPED. DID NOT PUT ANOTHER NG IN IT WAS CLAMPED AND NOT GETTING MEDS THROUGH IT ANYWAY. ON RA SATING HIGH 90'S. WEAK AND WORSENING WET COUGH SO BEING VERY CONSERVATIVE WITH SWABS AND CONTINUE STRICT NPO. NSR IN THE 70'S. BP ELEVATED AT START OF SHIFT AND PRN HYDRALAZINE GIVEN. RECHECK OF BP ON SOFTER SIDE BUT MAP OF 70. PORTILLO PATENT DRAINING TO GRAVITY. HYPOACTIVE BOWEL SOUNDS BUT NODS YES THAT SHE IS PASSING GAS. CLINIMIX AND FLUIDS RUNNING PER ORDER. REPORT GIVEN TO EREN CHE AND CARE ENDORSED TO HER.
--- NOTE | 2021-06-01 02:14 | NUR ---
TRANSFER PATIENT TRANSFERRED TO PCU 15. ASSESSMENT COMPLETED BY PREVIOUS NURSE AND THIS RN AGREES WITH PREVIOUS ASSESSMENT. PATIENT IS ALERT TO SELF ONLY. MUMBLES WORDS INCOHERENTLY, NODS WHEN QUESTIONS ARE ASKED. RESTRAINTS IN PLACE TO PROTECT LINES/CORDS/TUBES BUT PATIENT ALSO GRABBING/SCRATCHING AT STAFF WHEN IN REACH. LUNG SOUNDS ARE COARSE T/O. PUPILS ARE EQUAL AND REATIVE, STRONG BILAT HAND PUBLICATION DIRECTOR. WEAK BILAT LOWER EXTREMS. RADIAL PULSES STRONG AND EQUAL. PEDAL PULSES PALPABLE. TELE IN PLACE. CLINIMIX INFUSING. CALL LIGHT IN REACH, BED IN LOW POSITION.
[2021-06-01 05:09] LABS: Hematocrit 33.5 % (33.0-51.0); Hemoglobin 11.1 g/dL (11.5-16.0); Mean Corpuscular HGB 29.7 pg (26.0-34.0); Mean Corpuscular HGB Conc 33.1 g/dL (31.5-36.5); Mean Corpuscular Volume 90 fL (80-100); NRBC ABSOLUTE 0.02 K/mm3 (0.00-0.02); NRBC Auto 0.3 /100 WBC (0.0-0.2); RDW Coefficient Variation 13.9 % (11.7-14.2); RDW Standard Deviation 45.6 fL (35.1-46.3); Red Blood Cell Count 3.74 M/mm3 (3.80-5.20); White Blood Cell Count 6.02 K/mm3 (4.00-11.30)
--- NOTE | 2021-06-01 05:17 | NUR ---
SHIFT SUMMARY NO SIGNIFICANT CHANGES SINCE LAST NOTE. ALERT AND ORIENTED TO SELF ONLY. MUMBLES WORDS INCOHERENTLY BUT NODS TO QUESTIONS BEING ASKED. VSS. STRICT NPO. PATIENT REMAINS RESTRAINED WITH BILAT SOFT WRIST RESTRAINTS DUE TO PULLING AT LINES/TUBES. VSS. PATIENT REMAINS ON ROOM AIR WITH SATURATIONS ABOVE 90%. WEAK COUGH BUT PATIENT ENCOURAGED TO CONTINUE COUGHING TO BREAK UP MUCOUS. CRITICAL LOW PLATELETS OF 39 ON AM LABS, HOSPITALIST AWARE, NO NEW ORDERS RECIEVED. WILL REPORT TO DAY SHIFT RN.
[2021-06-01 05:20] LABS: Mean Platelet Volume 13.6 fL (9.1-12.4); Platelet Count 39 K/mm3 (150-400)
[2021-06-01 06:24] LABS: Albumin, Blood 1.6 g/dL (3.4-5.0); Anion Gap 14 mmol/L (6-16); Blood Urea Nitrogen 69 mg/dL (8-24); Bun/Creatinine Ratio 24.9 (12.0-20.0); CO2, Blood 21 mmol/L (21-32); Calcium, Blood 7.9 mg/dL (8.5-10.1); Chloride, Blood 111 mmol/L (98-108); Creatinine, Blood 2.77 mg/dL (0.40-1.00); Glomerular Filtration Rate 17 (60-); Glucose, Blood 123 mg/dL (70-99); Phosphorus, Blood 3.7 mg/dL (2.5-4.9); Potassium, Blood 3.7 mmol/L (3.5-5.5); Sodium, Blood 146 mmol/L (136-145)
[2021-06-01 06:48] LABS: BAND PERCENT MAN 11 % (0-8); BASOPHILS PERCENT MAN 0 % (0-2); EOSINOPHILS ABSOLUTE MAN 0.06 K/mm3 (0.00-0.68); EOSINOPHILS PERCENT MAN 1 % (0-6); LYMPHOCYTES PERCENT MAN 15 % (21-46); MONOCYTES PERCENT MAN 5 % (4-13); NEUTROPHILS ABSOLUTE MAN 4.75 K/mm3 (1.96-9.15); SEG NEUTROPHILS PERCENT MAN 68 % (41-73); TOTAL CELLS COUNTED 100
--- NOTE | 2021-06-01 17:36 | NUR ---
PT SUMMARY: PT REMAINS ALERT TO SELF, ON AND OFF FORGETFULNESS SOMETIMES AWARE OF WHERE SHE'S AT BUT MOSTLY CONFUSED, GETS EASILY AGITATED AND FRUSTRATED SINCE PT KEPT ASKING FOR WATER, SWALLOW EVAL FAILED THIS AM DOBHOFF WAS PUT IN PLACE PER 'S ORDERS WAS ABLE TO START TUBE FEEDING WITH NO ISSUES, THEN LATE AFTERNOON WHEN CAME IN TO VISIT PT KEEPS YELLING FOR WATER AND STARTED PULLING LINES AND TUBES PT MANAGED TO PULL DOBHOFF OFF DR DOVER AWARE, TO KEEP PT NPO AND GET BARIUM SWALLOW DONE IN AM, PROVIDER DOES NOT WANT TO REPLACE THE DOBHOFF AND JUST KEEP PT ON 1/2NS AT 50MLS/HR AND WAIT IN THE MORNING FOR JOSE RESULT OF THE BARIUM SWALLOW AND GO FROM THERE. PT'S REMAINS AT THE BEDSIDE. PORTILLO TEMP WAS REMOVED DUE TO MRI RESTRICTIONS, WAS REPLACED WITH NORMAL PORTILLO 16FR 10CC DRAINING DARK YELLOW URINE VIA GRAVITY. RESTRAINTS WAS RE-APPLIED AT 1630 SINCE PT CONTINUES TO PULL ON LINES AND TUBINGS. NO ATTEMPTS OF GETTING OUT OF BED, BED ALARM ON AND SIDE RAILS FOR SAFETY. PT WAS GIVEN SUPPOSITORY FOR THE SHIFT AWAITING FOR RESULT WAS ALSO GIVEN MIRALAX WHEN DOBHOFF WAS IN PLACE. PT ONLY HAD A SMALL BM THIS AM, PROVIDER IS AWARE. NO OTHER ISSUES REPORTED FOR THE SHIFT, VITALS STABLE. NO TELE EVENTS REPORTED. PT REMAINS IN BED CALL LIGHTS IN REACH WILL REPORT TO ONCOMING SHIFT
--- NOTE | 2021-06-01 22:25 | NUR ---
ASSUMED CARE OF PATIENT AT APPROXIMATELY 1910 FROM KAREY Gustafson RN. PATIENT ALERT TO SELF AND YEAR; UNABLE TO STATE LOCATION, EVENT OR MONTH; CONFUSED; CALLS OUT INTO HALLWAY; UNABLE TO STATE NEEDS AT TIMES. BILAT SOFT WRIST RESTAINTS DUE TO PULLING OUT TUBES AND ON LINES. NSR W/ PAC'S ON TELE; OXYGEN SATURATION ABOVE 90% ON ROOM AIR; WET HARSH COUGH NOTED. NPO. IVF INFUSING PER ORDER. PATIENT HAS MULTIPLE BM'S THIS SHIFT; SOME STRINGY BLOOD CLOTS NOTED; DESIGN INTERN NOTIFIED.
--- NOTE | 2021-06-01 23:30 | NUR ---
PATIENT WENT INTO AFIB RVR W/ RATE OF 150 FROM 2314 TO 2315; PATIENT HYPERTENSIVE (DIASTOLIC ABOVE 110); IV PRN MEDICATION GIVEN. PATIENT CALLS OUT FOR WATER AND STATES SHE DOESNT BELIEVE THAT SHE COULD BE ASPIRATING AND THE DOCTORS ARE WRONG.
[2021-06-02 04:55] LABS: Hematocrit 33.3 % (33.0-51.0); Hemoglobin 10.9 g/dL (11.5-16.0); Mean Corpuscular HGB 29.3 pg (26.0-34.0); Mean Corpuscular HGB Conc 32.7 g/dL (31.5-36.5); Mean Corpuscular Volume 90 fL (80-100); NRBC ABSOLUTE 0.02 K/mm3 (0.00-0.02); NRBC Auto 0.3 /100 WBC (0.0-0.2); RDW Standard Deviation 45.3 fL (35.1-46.3); Red Blood Cell Count 3.72 M/mm3 (3.80-5.20); White Blood Cell Count 6.54 K/mm3 (4.00-11.30)
[2021-06-02 05:36] LABS: Albumin, Blood 1.6 g/dL (3.4-5.0); Anion Gap 13 mmol/L (6-16); Blood Urea Nitrogen 73 mg/dL (8-24); Bun/Creatinine Ratio 27.3 (12.0-20.0); CO2, Blood 21 mmol/L (21-32); Calcium, Blood 7.6 mg/dL (8.5-10.1); Chloride, Blood 111 mmol/L (98-108); Creatinine, Blood 2.67 mg/dL (0.40-1.00); Glomerular Filtration Rate 18 (60-); Glucose, Blood 79 mg/dL (70-99); Phosphorus, Blood 4.7 mg/dL (2.5-4.9); Potassium, Blood 3.9 mmol/L (3.5-5.5); Sodium, Blood 145 mmol/L (136-145)
[2021-06-02 05:52] LABS: Mean Platelet Volume 13.6 fL (9.1-12.4)
[2021-06-02 05:53] LABS: Platelet Count 40 K/mm3 (150-400)
--- NOTE | 2021-06-02 06:15 | NUR ---
PATIENT SLEPT ABOUT SEVEN HOURS LAST NIGHT; CALLED OUT INTO HALLWAY FREQUENTLY FOR ICE CHIPS; ORAL CARE Q4 W/ SUCTION SWABS. PATIENT PULLED PIV; PG INFUSING. PLT COUNT CRITICALLY LOW BUT IMPORVING; FINANCIAL ADMINISTRATION OFFICER NOTIFED.
--- NOTE | 2021-06-02 06:48 | NUR ---
DR. DOVER BEDSIDE WITH PATIENT; NOT NEW ORDERS; UPDATED ON STRINGY BLOOD CLOT IN STOOL; FREQUENT REQUEST FOR ICE CHIPS THROUGH THE NIGHT, AFIB RVR LAST NIGHT AND BLOOD PRESSURE.
[2021-06-02 14:10] LABS: HEPARIN INDUCED PLATELET AB 0.086 OD (0.000-0.400)
--- NOTE | 2021-06-02 14:35 | NUR ---
PT WAS CHANGED AT AROUND 1345 SINCE PT REPORTED HAVING A BM, AFTER PT WAS CHANGED PT STARTED LOOKING PALE, LETHARGIC, SPEECH IS SLURRED, NO TONGUE DEVIATION NOTICED CAN MOVE ALL EXTREMETIES, PUPILS REACTIVE TO LIGHT BP SYSTOLIC WAS IN THE 60'S,HRR WENT TO AFIB AT NOON TOUCHED UP TO 160'S, CALLED PROVIDER FLUID BOLUS OF 300MLS WAS GIVEN, TOTAL OF 10MG IV LOPRESSOR PUSH ADMINISTERED PT REMAINED ON AFIB, PT DENIES CHEST PAIN BUT HAS A LITTLE PRESSURE 1/10. DR CAMPA AWARE. WILL CONSIDER DOING AMIODARONE GTT AT THIS TIME PER PROVIDERS. BP SYSTOLIC REMAINS AT 70-80'S, PROVIDER AT BEDSIDE. WILL MONITOR PT
--- NOTE | 2021-06-02 15:01 | NUR ---
PT CONVERTED TO SINUS RHYTHM 70'S AT 1446, AMIODARONE GTT INFUSING AT 33.3MLS/HR FOR 6 HRS. SON AT THE [facility]
--- NOTE | 2021-06-02 16:37 | NUR ---
DOBB-STACY INSERTION: DOBB STACY WAS INSERTED AT 1625. PATIENT WAS RESTRAINED FOR PROCEDURE AND TOLERATED WELL. WAITING FOR X-RAY TO CONFIRM PLACEMENT BEFORE BEGINING TUBE FEEDINGS.
--- NOTE | 2021-06-02 17:47 | NUR ---
DOBHOFF: X-RAY CONFIRMED TUBE PLACEMENT AND CLEARED FOR USE.
--- NOTE | 2021-06-02 17:48 | NUR ---
PT SUMMARY: SEE PREVIOUS NOTES: FAMILY AT BEDSIDE AT THIS TIME (SON AND ), DR DOVER HAD CONVERSATION WITH THE FAMILY TODAY ABOUT PT PLAN OF CARE, FAMILY AGREED TO SWITCH PT TO DNR, START TUBE FEEDING VIA DOBHOFF AND POSS PEGTUBE PLACEMENT IF PT FAILS EVAL/SWALLOW TEST TOMORROW. PT'S VITALS ARE NOW STABLE HRR SINUS RHYTHM 70'S, BP SYSTOLIC 115-120'S, SATS ABOVE 95% ON RA, AFEBRILE. PT CAME ALERT AND TALKING AGAIN, AMIODARONE GTT INFUSING AT 33.3 MLS/HR FOR THE FIRST 6 HRS, TUBE FEEDING INFUSING AT 25MLS/HR WITH FLUSH 135MLS Q 4 HRS, PT HAD 550 URINE OUTPUT FOR THE SHIFT, DARK HERMES. PT ALSO HAD TWO MEDIUM SOFT BMS FOR THE SHIFT. PT REMAINS ON SOFT BILATERAL WRIST RESTRAINT TO PREVENT PULLING TUBES AND LINES. PT CURRENTLY RESTING AT THIS TIME, SUCTION AT BEDSIDE PRN. WILL REPORT TO ONCOMING SHIFT
--- NOTE | 2021-06-02 23:18 | NUR ---
ASSUMED CARE OF PATIENT AT 1900. ALERT TO SELF ONLY, VERY LETHARGIC. LEFT FACIAL DROOP. PUPILS BOTH 2, R BRISK, L SLUG. NO REPORTS OF PAIN. MAINTAINING ABOVE 90% ON RA, FINE CRACKLES IN R UPPER LOBE, CLEAR IN L UPPER LOBE, AND DIM AT BASES. SHALLOW BREATHING PATTERN. NSR IN 70'S, CONVERTED FROM AFIB AROUND 1900. +2 RADIAL PULSES, +1 PEDALS. BLE AND BUE 1+ EDEMA. NPO WITH DOBHOFF IN PLACE RUNNING 25ML/HR JEVITY. PORTILLO DRAINING SCANT AMOUNT OF HERMES URINE. SKIN VERY DUSKY AND DRY. BRUISING ON CHIN AND BL ARMS. VSS. WAS RUNNING AMIO AT 33.3ML/HR, NOW ON MAINTENANCE DOSE OF 16.6ML/HR. WILL UPDATE WITH ANY CHANGES THIS SHIFT.
[2021-06-03 06:43] LABS: Albumin, Blood 1.6 g/dL (3.4-5.0); Anion Gap 11 mmol/L (6-16); Blood Urea Nitrogen 69 mg/dL (8-24); Bun/Creatinine Ratio 25.8 (12.0-20.0); CO2, Blood 22 mmol/L (21-32); Calcium, Blood 7.9 mg/dL (8.5-10.1); Chloride, Blood 106 mmol/L (98-108); Creatinine, Blood 2.67 mg/dL (0.40-1.00); Glomerular Filtration Rate 18 (60-); Glucose, Blood 114 mg/dL (70-99); Magnesium, Blood 1.9 mg/dL (1.6-2.4); Potassium, Blood 3.5 mmol/L (3.5-5.5); Sodium, Blood 139 mmol/L (136-145)
[2021-06-03 07:03] LABS: Hematocrit 33.2 % (33.0-51.0); Hemoglobin 10.7 g/dL (11.5-16.0); Mean Corpuscular HGB 29.1 pg (26.0-34.0); Mean Corpuscular HGB Conc 32.2 g/dL (31.5-36.5); Mean Corpuscular Volume 90 fL (80-100); NRBC ABSOLUTE 0.03 K/mm3 (0.00-0.02); NRBC Auto 0.4 /100 WBC (0.0-0.2); Platelet Count 75 K/mm3 (150-400); RDW Coefficient Variation 14.1 % (11.7-14.2); Red Blood Cell Count 3.68 M/mm3 (3.80-5.20); White Blood Cell Count 7.85 K/mm3 (4.00-11.30)
[2021-06-03 09:43] LABS: International Normalized Ratio 1.18; Prothrombin Time Results 12.3 Sec (9.7-11.5)
[2021-06-03 11:29] LABS: Albumin, Blood 1.6 g/dL (3.4-5.0); Albumin/Globulin Ratio 0.5 (0.8-1.8); Bilirubin, Direct 0.2 mg/dL (0.0-0.3); Bilirubin, Indirect 0.3 mg/dL (0.1-0.7); Bilirubin, Total 0.5 mg/dL (0.1-1.0); Globulin, Blood 3.4 g/dL (2.2-4.0)
--- NOTE | 2021-06-03 12:50 | NUR ---
PT IS NOW A/O X3, PT VERY ANGRY SHE IS EXPRESSING THAT SHE IS ANGRY THAT "YOU BROUGHT ME BACK" REFERRING TO CODE LAST WEEK. PT STS THAT IT IS AGAINST GOD THAT WE ARE KEEPING HER ALIVE. PT HAS REMOVED HER DOBHOFF DESPITE BEING IN SWB THAT WERE APPROPRIATELY PLACED. PT NOW REFUSES TO EAT STS THAT SHE WILL EAT WHEN SHE GETS HOMES. PT GETS AGGRESIVE WITH STAFF WHEN TRYING TO REMOVED THE DOBHOFF SHE HAD PULLED FROM HER BED THEN SLAPS AT THIS RN. PT EXPRESSED MANY TIMES THAT SHE WISHES TO . DR DOVER CALLED HE WAS TO THE ROOM TO ASSESS PT, HE ORDERS THAT DR HARDIN COME EVALUATE PT, HE CALLED WILFRED HIMSELF. PT EXPRESSED ANGER THAT WILFRED HAS NOT IMMEDIATELY ARRIVED TO SEE HER CALLING STAFF LIARS. PT REMAINS IN RESTRAINTS PER MD ORDERS PT DEEMED TO BE A DANGER TO HERSELF
--- NOTE | 2021-06-03 18:36 | NUR ---
PT WITH VERY FLAT AFFECT T/O MOST OF THE DAY, PT CONTINUES TO STATE THAT SHE WISHES TO . PT STS THAT SHE REFUSES TO EAT UNTIL SHE IS D/C TO HOME, STS THAT SHE WILL CHOOSE TO IF SHE DOES NOT GO HOME STS SHE PLANS TO STARVE SELF. PT HAS A CONSULT WITH TITA TOMORROW. PT WITH LOOSE STOOLS T/O THE DAY HAS REQUIRED MULTIPLE LINEN CHANGES T/O THE DAY. PT WAS ALSO NOTED TO BE PUTTING HANDS IN ATTENDS AND SMEARING STOOL AROUND IN THE BED TODAY. VSS. PT REFUSED NYSTATIN AND ORAL CARE AND SHE WILL NOT ALLOW ANTYHIGN TO ENTER HER MOUTH. FAMILY WAS ASKED TO ENCOURAGE PT TO EAT BUT SHE ALSO REFUSED TO EAT FOR THEM.
--- NOTE | 2021-06-04 00:19 | NUR ---
ASSUMED CARE OF PATIENT AT 1900. A/OX4 BUT VERY LETHARGIC. MAINTAINS OVER 92% ON RA. SWR IN PLACE D/T PULLING AT LINES. SINUS RHYTHM IN THE 70'S. CLEAR LUNG SOUNDS WITH A MOIST COUGH. STRONG RADIAL +2 PULSES, FAINT +1 PEDALS. TENDER ABDOMEN. PORTILLO DRAINING TO GRAVITY HERMES URINE. RIGHT FACIAL DROOP PERSISTS. WILL UPDATE CHANGES OCCUR.
[2021-06-04 04:14] LABS: Hematocrit 32.2 % (33.0-51.0); Hemoglobin 10.6 g/dL (11.5-16.0); Mean Corpuscular HGB 29.1 pg (26.0-34.0); Mean Corpuscular HGB Conc 32.9 g/dL (31.5-36.5); Mean Corpuscular Volume 89 fL (80-100); Mean Platelet Volume 12.8 fL (9.1-12.4); Platelet Count 77 K/mm3 (150-400); RDW Coefficient Variation 14.1 % (11.7-14.2); RDW Standard Deviation 45.7 fL (35.1-46.3); Red Blood Cell Count 3.64 M/mm3 (3.80-5.20); White Blood Cell Count 7.92 K/mm3 (4.00-11.30)
[2021-06-04 04:36] LABS: Bun/Creatinine Ratio 23.4 (12.0-20.0); Calcium, Blood 7.6 mg/dL (8.5-10.1); Creatinine, Blood 2.73 mg/dL (0.40-1.00); Phosphorus, Blood 3.7 mg/dL (2.5-4.9); Potassium, Blood 3.3 mmol/L (3.5-5.5)
--- NOTE | 2021-06-04 06:45 | NUR ---
EVENT NOTE REQUESTED TO ROOM BY PRIMARY RN BRANDY TO EVALUATE WHETHER PT MEETS CRITERIA FOR RECTAL TUBE. PT IS HAVING CONSTANT WATERY STOOL THAT IS DARK IN COLOR. LAXATIVE HISTORY FROM LESS THAN 24 HOURS AGO SO SPECIMEN WOULD BE REJECTED TO R/O C. DIFF. PT CONSENTS TO RECTAL TUBE TO PREVENT SKIN BREAKDOWN AND TO REDUCE PAIN R/T CONSTANT TURNING AND CLEANING R/T LOOSE STOOLS. PLACED RECTAL TUBE WITH 45 ML WATER INFLATED AND PT TOLERATED WELL.
--- NOTE | 2021-06-04 13:12 | NUR ---
pt not responding much to stimulus. Nursing relayed pt and family interaction from yesterday. pt continues to decline. kps score40%. plan is to discuss hospice.
--- NOTE | 2021-06-04 15:38 | NUR ---
LEFT AMA PT's AND SON PRESENT AT BEDSIDE APPROX 1400 THIS SHIFT. PT's FAMILY DISCUSSED THEIR CONCERNS WITH THIS RN IN REGARDS TO TAKING PATIENT HOME AGAINST MEDICAL ADVICE, PT's AND SON VERBALIZED THAT THE PATIENT HAS DECIDED TO GO HOME DESPITE HER CURRENT CONDITION. PRIOR TO THIS SITUATION, UPON PATIENT's ARRIVAL TO THE UNIT THIS SHIFT FROM PCU, PT HAS NOT BEEN VERBAL TO STAFF AND REFUSED TO ANSWER ANY QUESTIONS IN REGARDS TO CARE. PT ALSO REFUSED SCHEDULED MEDICATION. THIS RN IMMEDIATELY NOTIFIED DR. GRAHAM AND DR. VALENZUELA IN REGARDS TO THE CONCERNS OF THE PATIENT AND HER FAMILY. DR. GRAHAM AND DR. VALENZUELA BOTH SPOKE TO PT's VIA PHONE CALL. NO FURTHER ORDERS NOTED FROM BOTH PROVIDERS. YANE MUNOZINDUSTRIAL ENERGY ENGINEER NURSE ALSO NOTIFIED OF PATIENT AND FAMILY'S CONCERN. CHARGE NURSES YANE MACDONALD AND YANE MILLER BOTH NOTIFIED. DESPITE ADVICE AND EDUCATION OF RISK OF LEAVING AMA FROM THIS RN, PALLIATIVE CARE RN, AND YANE MACDONALD, PATIENT DECIDED TO LEAVE AMA. PRIOR TO LEAVING, PORTILLO CATH AND RECTAL TUBE DISCONTINUED, NO ISSUES NOTED, PT TOLERATED WELL. PERIPHERAL IV AND POWERGLIDE ALSO DISCONTINUED. TELE DISCONTINUED. AMA FORM SIGNED BY PATIENT, SEE IN CHART. PT AND FAMILY ALSO VERBALIZED UNDERSTANDING OF RISK INVOLVED WHEN PATIENT LEAVES AMA. DR. GRAHAM UPDATED OF PATIENT's STATUS VIA PHONE CALL.
--- NOTE | 2021-06-04 15:53 | NUR ---
called by bed side nurse to help with pt and family wanting to AMA. pt spoke with dr Pedroza and reviewed the risks of leaving. He wanted her to wait and see Dr Baltazar and get some Iv nutrition. Spoke with of the severity or their choice and risks. Pt sees doctor Ritchie regularly so had nursing notify Him of her AMA. This strategy was to give an extra layer of support. He called the pt and tried. She still said not he notified his staff to set up follow up. Anjana will also set up follow up. Had a care and upportive conversation with pt she was very clear and able to answer questions about he needs. She signed the for. Parr and rectal tube removed. Nursing removed her IV. Advised family if she declines further may need to discuss home health or hospice. wanted us to set up home health. Advised them both before she signed that inusrance may not pay the bill because of ama and will decline HH. Dr ritchie staff will set it up or [place]. Pt and leonelad demonstated understanding of our presntaion of risk and ethical and moral distress of the risk. Medical floor charge notified and particpated in the conversation.
--- NOTE | 2021-06-07 08:01 | NUR ---
Patient discharged on 06/04/21 AMA ( see [facility] patient notes). Transition of care will contact patient to schedule PCP hospital follow-up.
== END 2021-06-04 15:41 | disposition left against medical advice (07) | DRG 871 ==
LOC: ER 22:29 → ICUW 05-25 02:02 → MEDS 05-25 02:02 → PCU 05-25 02:02 → MEDS 05-25 12:10 → ICUW 05-28 17:41 → PCU 06-01 01:45 → MEDS 06-04 11:23
PROVIDERS: Emergency Medicine; Family Medicine; Internal Medicine Critical Care Medicine; Internal Medicine Endocrinology, Diabetes & Metabolism; Internal Medicine Nephrology; ADMIT Internal Medicine
PROC: 3E033XZ Introduction of Vasopressor into Peripheral Vein, Percutaneous Approach (ICD-10-PCS; principal; 2021-05-28)
PROC: 0BH18EZ Insertion of Endotracheal Airway into Trachea, Via Natural or Artificial Opening Endoscopic (ICD-10-PCS; 2021-05-28)
PROC: 5A1945Z Respiratory Ventilation, 24-96 Consecutive Hours (ICD-10-PCS; 2021-05-28)
DX: A41.9 Sepsis, unspecified organism (principal); N17.0 Acute kidney failure with tubular necrosis; I46.9 Cardiac arrest, cause unspecified; J69.0 Pneumonitis due to inhalation of food and vomit; E87.2 Acidosis; E87.1 Hypo-osmolality and hyponatremia; I13.0 Hypertensive heart and chronic kidney disease with heart failure and stage 1 through stage 4 chronic kidney disease, or unspecified chronic kidney disease; I50.22 Chronic systolic (congestive) heart failure; K51.50 Left sided colitis without complications; G93.1 Anoxic brain damage, not elsewhere classified; K56.609 Unspecified intestinal obstruction, unspecified as to partial versus complete obstruction; T17.818A Gastric contents in other parts of respiratory tract causing other injury, initial encounter; N18.4 Chronic kidney disease, stage 4 (severe); D61.818 Other pancytopenia; R47.01 Aphasia; E87.0 Hyperosmolality and hypernatremia; Z66 Do not resuscitate; I95.1 Orthostatic hypotension; E83.42 Hypomagnesemia; E88.09 Other disorders of plasma-protein metabolism, not elsewhere classified; E83.51 Hypocalcemia; E87.6 Hypokalemia; Z78.1 Physical restraint status; I48.0 Paroxysmal atrial fibrillation; R65.20 Severe sepsis without septic shock; R91.1 Solitary pulmonary nodule; G89.4 Chronic pain syndrome; E86.0 Dehydration; M54.50 Low back pain, unspecified; I25.10 Atherosclerotic heart disease of native coronary artery without angina pectoris; Z91.14 Patient's other noncompliance with medication regimen; Z90.49 Acquired absence of other specified parts of digestive tract; Z95.5 Presence of coronary angioplasty implant and graft; Z98.890 Other specified postprocedural states; Z87.891 Personal history of nicotine dependence; Z88.2 Allergy status to sulfonamides; Z88.1 Allergy status to other antibiotic agents; Z91.041 Radiographic dye allergy status; Z79.82 Long term (current) use of aspirin; Z79.899 Other long term (current) drug therapy; X58.XXXA Exposure to other specified factors, initial encounter
CPT/HCPCS: 31500; 31720; 36415; 36600; 70450; 70551; 71045; 74176; 80048; 80053; 80069; 80076; 80162; 81001; 82140; 82330; 82803; 82947; 83605; 83690; 83735; 84100; 84295; 84439; 84443; 84484; 85014; 85018; 85025; 85027; 85049; 85610; 85730; 86022; 87040; 87070; 87205; 87493; 92526; 92610; 92950; 93005; 93010; 94002; 94003; 94760; 94762; 96374; 96375; 97110; 97112; 97162; 97166; 97530; 99285-25; A9270; C1751; C8929; C9113; J0171; J0282; J0295; J0360; J0610; J0696; J0881; J1160; J1170; J1265; J1644; J1940; J1956; J2250; J2405; J2550; J2704; J3010; J3475; J3480; J7030; J7040; J7050; J7060; J7070; J7131; P9041; Q9957

== ENCOUNTER 2021-06-12 15:17 | Inpatient (IN) | payer OTHER ==
[~2021-06-12] VITALS: Ht 170.2 cm; Wt 54.1 kg
[~2021-06-12 15:17] MED LIST changes: +ONDA4ODT MM
[2021-06-12 15:44] LABS: BASOPHILS ABSOLUTE AUTO 0.01 K/mm3 (0.00-0.23); BASOPHILS PERCENT AUTO 0 % (0-2); EOSINOPHILS ABSOLUTE AUTO 0.09 K/mm3 (0.00-0.68); EOSINOPHILS PERCENT AUTO 2 % (0-6); Hematocrit 35.2 % (33.0-51.0); Hemoglobin 11.2 g/dL (11.5-16.0); IMMATURE GRAN ABSOLUTE AUTO 0.07 K/mm3 (0.00-0.10); IMMATURE GRAN PERCENT AUTO 1 % (0-1); LYMPHOCYTES ABSOLUTE AUTO 0.77 K/mm3 (0.84-5.20); LYMPHOCYTES PERCENT AUTO 14 % (21-46); MONOCYTES PERCENT AUTO 12 % (4-13); Mean Corpuscular HGB 28.6 pg (26.0-34.0); Mean Corpuscular HGB Conc 31.8 g/dL (31.5-36.5); Mean Corpuscular Volume 90 fL (80-100); Mean Platelet Volume 10.9 fL (9.1-12.4); NEUTROPHILS PERCENT AUTO 71 % (41-73); Platelet Count 299 K/mm3 (150-400); RDW Coefficient Variation 14.3 % (11.7-14.2); RDW Standard Deviation 46.6 fL (35.1-46.3); Red Blood Cell Count 3.92 M/mm3 (3.80-5.20); White Blood Cell Count 5.64 K/mm3 (4.00-11.30)
[2021-06-12 15:59] LABS: Source, Urine Catheter
[2021-06-12 16:05] LABS: Appearance, Urine Hazy (Clear); Bilirubin, Urine Neg (Neg); Blood, Urine 1+ (Neg); Color, Urine Yellow (P-Yellow); Glucose Qualitative, Urine Neg (Neg); Ketones, Urine Neg (Neg); Leukocyte Esterase, Urine Neg (Neg); Nitrite, Urine Neg (Neg); Protein, Urine 2+ (Neg); Urobilinogen, Urine NORM (Normal)
[2021-06-12 16:09] LABS: Troponin I 0.04 ng/mL (0.000-0.040)
[2021-06-12 16:10] LABS: Albumin, Blood 1.5 g/dL (3.4-5.0); Albumin/Globulin Ratio 0.3 (0.8-1.8); Bilirubin, Total 0.4 mg/dL (0.1-1.0); Bun/Creatinine Ratio 11.7 (12.0-20.0); Calcium, Blood 7.8 mg/dL (8.5-10.1); Creatinine, Blood 3.25 mg/dL (0.40-1.00); Globulin, Blood 4.5 g/dL (2.2-4.0); Potassium, Blood 3.2 mmol/L (3.5-5.5)
[2021-06-12 16:24] LABS: White Blood Cells, Urine 0-2 /hpf (0-5)
[2021-06-12 16:25] LABS: Bacteria Mod /hpf; Hyaline Casts 0-2 /lpf (0-2); Squamous Epithelial Cells Few /hpf (Few); Yeast/Fungi Urine Many /hpf
[2021-06-12 16:39] LABS: Influenza A, PCR NEGATIVE (NEGATIVE); Influenza B, PCR NEGATIVE (NEGATIVE); Resp Syncytial Virus, PCR NEGATIVE (NEGATIVE); SARS-Cov-2 (COVID-19) PCR, MMC NEGATIVE (NEGATIVE)
--- NOTE | 2021-06-12 20:22 | NUR ---
06/12/212021 Addy Christopher PT RECIEVED ANTIBIOTICS IN ER PER DR HUGGINS.
--- NOTE | 2021-06-12 22:06 | NUR ---
PT CONTINUALLY COMPLAINING OF "I CAN'T BREATHE IT" AND MOANING IN PAIN. BLOOD PRESSURE CONTINUES TO STAY IN THE 80S SYSTOLIC DESPITE FLUID BOLUS PER ANESTHESIA. EMORY CHE CALLED TO DR. HUGGINS FOR ICU ORDER. DR. HUGGINS OKPRITIED AND HOSPITALIST CONTACTED. ORDER PLACED FOR ICU STATUS.AWAITING PLACEMENT. NOTIFIED HOSPITALIST OF NEED FOR IMPROVED VASCULAR ACCESS.
--- NOTE | 2021-06-13 | NUR ---
PT ARRIVES FROM OR POST COLECTOMY AND COLOSTOMY PLACEMENT. ARRIVING TO ROOM AT 2215. BLOOD PRESSURE UPON ARRIVAL WAS LOW WITH SBP IN THE 70'S. DID DO DOPPLER BLOOD PRESSURES WITH VALUES RETURNED SBP 116, AND 108. PT ASYMPTOMATIC WITH THIS. HAS HAD SALINE BOLUSES. HEART RATE CONTINUES WITH SINUS TACH, WITH PVC'S AND PAC'S. PT FREQUENTLY REQUESTING PAIN MEDICATION. COMPLAINS OF BEING COLD, AND THEN STATES SHE IS HOT. HAS FREQUENTLY STATED " I CAN'T BREATHE" OXYGEN SATURATIONS MAINTAINS > 90 PERCENT. WILL CONTINUE TO TRY TO GET BLOOD PRESSURES TO RESPOND TO TREATMENT.
[2021-06-13 01:51] LABS: Hematocrit 36.1 % (33.0-51.0); Hemoglobin 11.4 g/dL (11.5-16.0); Mean Corpuscular HGB Conc 31.6 g/dL (31.5-36.5); Mean Corpuscular Volume 92 fL (80-100); NRBC ABSOLUTE 0.06 K/mm3 (0.00-0.02); NRBC Auto 0.9 /100 WBC (0.0-0.2); Platelet Count 370 K/mm3 (150-400); RDW Coefficient Variation 14.5 % (11.7-14.2); RDW Standard Deviation 48.9 fL (35.1-46.3); Red Blood Cell Count 3.93 M/mm3 (3.80-5.20); White Blood Cell Count 6.73 K/mm3 (4.00-11.30)
[2021-06-13 02:08] LABS: BAND PERCENT MAN 23 % (0-8); BASOPHILS PERCENT MAN 0 % (0-2); EOSINOPHILS ABSOLUTE MAN 0.06 K/mm3 (0.00-0.68); EOSINOPHILS PERCENT MAN 1 % (0-6); LYMPHOCYTES ABSOLUTE MAN 0.26 K/mm3 (0.84-5.20); LYMPHOCYTES PERCENT MAN 4 % (21-46); MONOCYTES ABSOLUTE MAN 0.47 K/mm3 (0.16-1.47); MONOCYTES PERCENT MAN 7 % (4-13); MYELOCYTE ABSOLUTE MAN 0.06 K/mm3 (0.00-0.00); MYELOCYTE PERCENT MAN 1 % (0-0); NEUTROPHILS ABSOLUTE MAN 5.85 K/mm3 (1.96-9.15); SEG NEUTROPHILS PERCENT MAN 64 % (41-73); TOTAL CELLS COUNTED 100
[2021-06-13 02:09] LABS: Albumin/Globulin Ratio 0.3 (0.8-1.8); Bilirubin, Total 0.4 mg/dL (0.1-1.0); Bun/Creatinine Ratio 12.1 (12.0-20.0); Calcium, Blood 7.2 mg/dL (8.5-10.1); Creatinine, Blood 2.73 mg/dL (0.40-1.00); Globulin, Blood 3.2 g/dL (2.2-4.0); Magnesium, Blood 1.4 mg/dL (1.6-2.4); Potassium, Blood 3.4 mmol/L (3.5-5.5); Total Protein, Blood 4.2 g/dL (6.4-8.2)
[2021-06-13 03:47] LABS: International Normalized Ratio 1.51; Prothrombin Time Results 15.4 Sec (9.7-11.5)
--- NOTE | 2021-06-13 06:45 | NUR ---
PT HAS HAD VERY ANXIOUS NIGHT. NEEDS FREQUENT REASSURANCE. REQUESTS TO HAVE STAFF REMAIN IN ROOM "ALL NIGHT" WITH HER. HAVE HAD ISSUES WITH BLOOD PRESSURES HAVING DIFFICULTIES BEING READ. HAVE INCREMINTED LEVOPHED TO 10 MCG'S/MIN WITH NO RESULTING BLOOD PRESSURE IMPROVEMENTS. HAVE SPOKEN WITH DR STRONG MULTIPLE TIMES CONCERNING BLOOD PRESSURES. HAVE DONE BOLUSES, AND GIVEN ALBUMIN WELL LEVOPHED. CENTRAL LINE PLACED THIS AM BY DR STRONG WITH 2000 LITERS OF NORMAL SALINE BOLUSES. HAVE INCREASED LEVOPHED TO 15 MCG/MIN WITH RESULTING IMPROVEMENT OF BLOOD PRESSURES WITH MAP IMPROVING TO > 60. PT HAS BEEN MEDICATED WITH FENTANYL 50 MCG'S FOR ABDOMINAL AND BACK PAIN. PT DOES FREQUENTLY ASK FOR PAIN MEDICATIONS. HAS FREQUENT REQUESTS FOR VARIOUS TASKS. WILL CONTINUE TO MONITOR PT, AND WILL REPORT OFF TO ONCOMING RN.
--- NOTE | 2021-06-13 07:30 | NUR ---
ASSUMED CARE: REPORT RECEIVED FROM ARIC Garcia RN. ASSUMED CARE OF THIS PT AT APPROX 0700. ON ASSESSMENT, THE PT IS AWAKE, A&O TO ALL. SHE STS HAVING PAIN IN HER ABD THAT IS ACHING/ BURNING IN NATURE, S/P EX LAP W/ COLOSTOMY PLACEMENT. LS ARE CLEAR T/O, PT ON RA W/ O2 SATS > 95%. MONITOR SHOWS ST W/ HR 100-130s, LEVOPHED INFUSING FOR HYPOTENSION. ABDOMEN IS TENDER TO PALPATION, END COLOSTOMY IN PLACE TO LUQ DRAINING SMALL AMNT SEROSANGUINOUS OUTPUT. PORTILLO IN PLACE, PATENT/ DRAINING DARK YELLOW URINE. SKIN CONDITION OVERALL FRAGILE. MIDLINE INCISION CLOSED W/ RANCHO, PER PROVIDER NOTE. QUINN WOUND VAC IN PLACE TO MIDLINE ABD INCISION, ORANGE INDICATOR LIGHT BLINKING THAT DRESSING IS NOT WELL-SEALED. DRESSING IS LOW ON PUBIC BONE & NOT SEALING WELL R/T PT's PUBIC HAIR, AREA REINFORCED BUT STILL NOT SEALING WELL, WILL DISCUSS W/ SURGEON. WILL CONTINUE TO MONITOR & UPDATE NEEDED.
--- NOTE | 2021-06-13 09:30 | NUR ---
DR HUGGINS: PROVIDER AT BEDSIDE TO EVAL PT THIS AM. DISCUSSED ISSUE W/ QUINN WOUND VAC DRESSING PLACEMENT & INABILITY TO GET ADEQUATE SEAL, HE STS THAT IS OKAY & TO REMOVE THE DRESSING & PLACE STANDARD ABD DRESSING IF NEEDED, OKAY TO LEAVE QUINN DRESSING IN PLACE IF NOT SOILED. ALSO DISCUSSED PT's CONTINUED C/O ABDOMINAL PAIN & "BURNING" UNRELIEVED BY ORDERED FENTANYL, PROVIDER STS HE WILL PLACE ORDERS FOR THE PT TO RECEIVE DILAUDID. THE PT IS ALSO OKAY TO RECEIVE PO DIET OF CLEAR LIQUIDS. NO OTHER CHANGES AT THIS TIME.
--- NOTE | 2021-06-13 11:30 | NUR ---
DR KATHLEEN: PROVIDER AT BEDSIDE TO RYLEY PT THIS AM. DISCUSSED ABX ORDERS FOR BOTH LEVAQUIN & ZOSYN, HE STS TO D/C LEVAQUIN. HYPOTENSION IMPROVING & THIS HAS BEEN DISCUSSED WELL, CONTINUE CURRENT ORDERS FOR NS @ 125 ML/HR & THEN MAY GIVE 500 ML BOLUS x2 AFTER CONTINUOUS IVF COMPLETE, IF HYPOTENSION PERSISTANT. NO OTHER CHANGES AT THIS TIME.
--- NOTE | 2021-06-13 16:41 | NUR ---
CALL TO DR KATHLEEN: THIS RN HAS CONTACTED PROVIDER REGARDING PT's OLIGURIA. SINCE ADMIT, SHE HAS HAD APPROX 400 ML URINE OUTPUT NOTED IN PORTILLO CATHETER BAG. URINE IS DARK YELLOW-BROWN IN COLOR. PER DOCUMENTATION, SHE IS POSITIVE > 6,000 ML. THE PT TELLS THIS RN THAT SHE MAKES ONLY SMALL AMNTS OF URINE AT BASELINE & THAT SHE HAS A HX OF PERITONEAL DIALYSIS FOR MULTIPLE YEARS, BUT HAS NOT REQUIRED DIALYSIS FOR "AROUND 4 YRS NOW." PROVIDER UPDATED THAT LEVOPHED HAS BEEN ON STANDBY SINCE EARLY AFTERNOON W/ MAP > 65, PT's LS REMAINS CLEAR, O2 SATS > 92% ON RA & 1-2+ EDEMA NOTED TO BILAT ANKLES IS UNCHANGED SINCE PT ADMISSION. HE STS WE WILL CONTINUE TO OBSERVE THE PT OVERNIGHT & CONSIDER NEPHROLOGY CONSULTATION IF NO IMPROVEMENT IS NOTED BY TOMORROW AM.
--- NOTE | 2021-06-13 18:33 | NUR ---
SHIFT SUMMARY: NO ACUTE CHANGES SINCE PRIOR UPDATES. PT CONTINUES TO HAVE C/O ABDOMINAL PAIN, BUT OVERALL BETTER CONTROL W/ PRN DILAUDID USE. LS CLEAR T/O, PT ON RA W/ O2 SATS > 95%. MONITOR SHOWS SR W/ PACs & PVCs, HR 80-90s, LEVOPHED REMAINS ON STANDBY W/ MAP > 65. PT TOLERATING SMALL AMNTS OF CLEAR LIQUID INTAKE W/ NO INCREASE NOTED TO PAIN LEVEL. STOMA TO LUQ REMAINS PINK & MOIST, SMALL AMNT SEROSANGUINOUS DRAINAGE NOTED IN COLOSTOMY BAG THIS SHIFT. PORTILLO PATENT/ DRAINING DARK YELLOW-BROWN URINE. SKIN CONDITION OVERALL FRAGILE, MIDLINE INCISION TO ABDOMEN W/ QUINN DRESSING CDI. WILL CONTINUE TO MONITOR & REPORT OFF TO ONCOMING RN.
--- NOTE | 2021-06-13 19:48 | NUR ---
ASSUMED CARE OF PT AT 1900, REPORT RECEIVED FROM GODWIN CHE. PT RESTING IN BED, COMPLAINING OF 6/10 ABD PAIN. PT WITH NS INFUSING AT 125 ML/HR. HR 90'S, SBP WITH MAP >60, ON RA SPO2 95%. ALERT AND ORIENTED, WEAKNESS NOTED IN ALL EXTREMITIES. ABD BINDER IN PLACE, QUINN DRESSING TO MIDLINE INCISION NO SUCTION DRESSING CDI. PORTILLO DRAINING TO GRAVITY, MINIMAL OUTPUT RECORDED DURING DAYSHIFT. PT TOLERATING SIPS OF WATER WITHOUT ISSUE. CALL LIGHT WITHIN REACH. DECLINE REPOSITION DUE TO ABD PAIN, PRN PAIN MEDS GIVEN, WILL CONTINUE TO MONITOR.
[2021-06-14 05:00] LABS: Hematocrit 23.4 % (33.0-51.0); Hemoglobin 7.2 g/dL (11.5-16.0); Mean Corpuscular HGB 28.7 pg (26.0-34.0); Mean Corpuscular HGB Conc 30.8 g/dL (31.5-36.5); Mean Corpuscular Volume 93 fL (80-100); Mean Platelet Volume 11.3 fL (9.1-12.4); NRBC ABSOLUTE 0.02 K/mm3 (0.00-0.02); NRBC Auto 0.1 /100 WBC (0.0-0.2); Platelet Count 197 K/mm3 (150-400); RDW Coefficient Variation 14.8 % (11.7-14.2); Red Blood Cell Count 2.51 M/mm3 (3.80-5.20); White Blood Cell Count 15.32 K/mm3 (4.00-11.30)
[2021-06-14 05:07] LABS: Bun/Creatinine Ratio 11.6 (12.0-20.0); Calcium, Blood 7.1 mg/dL (8.5-10.1); Creatinine, Blood 2.68 mg/dL (0.40-1.00); Magnesium, Blood 1.5 mg/dL (1.6-2.4); Phosphorus, Blood 4.9 mg/dL (2.5-4.9); Potassium, Blood 3.3 mmol/L (3.5-5.5)
[2021-06-14 05:55] LABS: BAND PERCENT MAN 15 % (0-8); BASOPHILS ABSOLUTE MAN 0.15 K/mm3 (0.00-0.23); BASOPHILS PERCENT MAN 1 % (0-2); EOSINOPHILS PERCENT MAN 0 % (0-6); LYMPHOCYTES ABSOLUTE MAN 0.76 K/mm3 (0.84-5.20); LYMPHOCYTES PERCENT MAN 5 % (21-46); MONOCYTES ABSOLUTE MAN 0.15 K/mm3 (0.16-1.47); MONOCYTES PERCENT MAN 1 % (4-13); NEUTROPHILS ABSOLUTE MAN 14.24 K/mm3 (1.96-9.15); SEG NEUTROPHILS PERCENT MAN 78 % (41-73); TOTAL CELLS COUNTED 100
--- NOTE | 2021-06-14 06:09 | NUR ---
SHIFT SUMMARY PT CONTINUES TO HAVE 5-6/10 ABDOMINAL PAIN, PRN DILAUDID GIVEN. PT ALERT AND ORIENTED. SBP WITH MAP >60, SPO2 >90% ON RA, HR 90-100'S. STOMA TO LUQ PINK AND MOIST, SMALL AMOUNT OF SEROSANGUINOUS DRAINAGE THIS SHIFT. MINIMAL AMOUNT OF URINE VIA PORTILLO, DARK HERMES IN COLOR. MIDLINE INCISION INTACT WITH QUINN DRESSING CDI. LUNG CLEAR T/O. PT VERY WEAK, ABLE TO MOVE ALL EXTREMITIES. EDEMA TO BUE & BLE. TOLERATING SIPS OF THIN LIQUIDS, DENIES INCREASED ABD PAIN WITH INTAKE.
[2021-06-14 07:07] LABS: Hematocrit 24.3 % (33.0-51.0); Hemoglobin 7.7 g/dL (11.5-16.0); Mean Corpuscular HGB 29.1 pg (26.0-34.0); Mean Corpuscular HGB Conc 31.7 g/dL (31.5-36.5); Mean Corpuscular Volume 92 fL (80-100); Mean Platelet Volume 11.1 fL (9.1-12.4); Platelet Count 212 K/mm3 (150-400); RDW Standard Deviation 50.5 fL (35.1-46.3); Red Blood Cell Count 2.65 M/mm3 (3.80-5.20); White Blood Cell Count 16.21 K/mm3 (4.00-11.30)
[2021-06-14 07:32] LABS: BAND PERCENT MAN 16 % (0-8); BASOPHILS PERCENT MAN 0 % (0-2); EOSINOPHILS PERCENT MAN 0 % (0-6); LYMPHOCYTES ABSOLUTE MAN 0.97 K/mm3 (0.84-5.20); LYMPHOCYTES PERCENT MAN 6 % (21-46); MONOCYTES ABSOLUTE MAN 0.64 K/mm3 (0.16-1.47); MONOCYTES PERCENT MAN 4 % (4-13); NEUTROPHILS ABSOLUTE MAN 14.58 K/mm3 (1.96-9.15); SEG NEUTROPHILS PERCENT MAN 74 % (41-73); TOTAL CELLS COUNTED 100
--- NOTE | 2021-06-14 08:45 | NUR ---
ASSUMED CARE: REPORT RECEIVED FROM KRISTOPHER Garcia RN. ASSUMED CARE OF THIS PT AT APPROX 0700. ON ASSESSMENT, THE PT IS AWAKE, A&O. SHE HAS C/O "BURNING" ABDOMINAL PAIN, WORSENED W/ MOVEMENT & ADLs. SHE IS VERY ANXIOUS W/ INCREASED ACTIVITY, STATING "I'M SO SCARED" & "I CAN'T DO THIS," IN REGARDS TO PARTICIPATING IN CARE MEASURES, SUCH REPOSITIONING. LS ARE CLEAR T/O, PT ON RA W/ O2 SATS > 92%. MONITOR SHOWS SR-ST W/ HR 80-100s. SLIGHT HYPOTENSION W/ SBP 90s, MAP MAINTAINING > 65. LEVOPHED REMAINS ON STANDBY. PT TOLERATING SMALL AMNTS OF CLEAR LIQUID DIET W/ NO INCREASED ABD PAIN. COLOSTOMY TO LUQ SCANT AMNT SS DRAINAGE & STOMA REMAINS PINK/ MOIST. PORTILLO PATENT/ DRAINING DARK YELLOW-BROWN URINE W/ SCANT OUTPUT NOTED. SKIN CONDITION OVERALL FRAGILE, MIDLINE ABDOMINAL INCISION CLOSED W/ RANCHO & COVERED W/ QUINN DRESSING. QUINN WOUND VAC CONTINUES NOT SEALING WELL, DRESSING REMAINS CDI. WILL CONTINUE TO MONITOR & UPDATE NEEDED.
--- NOTE | 2021-06-14 15:10 | NUR ---
DR RIVERA: CALL TO PROVIDER REGARDING PT's NEW C/O CHEST PAIN THAT IS WORSENED W/ INSPIRATION. THE PAIN DOES NOT RADIATE & THE PT STS IT "JUST HURTS" WHEN ASKED TO DESCRIBE THE QUALITY OF THE PAIN. THE PAIN DOES NOT INCREASE W/ PALPATION TO THE CHEST. O2 SATS > 95% ON RA & PT STS NO SOB. EKG ORDERED THAT SHOWS ST W/ PACs. DR RIVERA HAS ARRIVED AT BEDSIDE & DISCUSSED POC W/ THE PT's , MICHELLE. MICHELLE HAS NOTED THAT THEY DO NOT WANT TO PROLONG ANY SUFFERING FOR THE PT & DUE TO HER CONTINUED CRITICAL CONDITION, HAVE DECIDED TO CHANGE THE PT's CODE STATUS TO DNR. IN CONVERSATION W/ THE PT & HER , [place] S&S HAS ALSO BEEN ORDERED R/T PT's NEW MOUTH PAIN THAT "FEELS THE SAME" WHEN SHE WAS DIAGNOSED W/ THRUSH DURING PRIOR ADMISSION.
--- NOTE | 2021-06-14 17:03 | NUR ---
SHIFT SUMMARY: NO ACUTE CHANGES SINCE PRIOR UPDATES. PT REMAINS A&O TO ALL, CRIES OUT IN PAIN & FEAR W/ INCREASED STIMULUS OR COMPLETION OF ADLs. STATING "I CAN'T DO THIS" & "I'M SO SCARED TO HURT FOREVER." SHE IS NOW RESTING AFTER PRN DOSE OF DILAUDID PER EMAR. LS CLEAR T/O, PT ON RA W/ O2 SATS > 95%. MONITOR SHOWS SR-ST W HR 90s, BP STABLE. PT TOLERATING SMALL AMNTS OF CLEAR LIQUID DIET W/ NO INCREASED ABD PAIN. COLOSTOMY W/ SCANT AMNT SS DRAINAGE NOTED IN BAG. STOMA REMAINS PINK & MOIST, ABD BINDER IN PLACE. PORTILLO PATENT/ DRAINING SCANT AMNTS OF BROWN URINE. SKIN OVERALL FRAGILE, SWELLING INCREASED TO BLE & BUE. THE PT IS ENCOURAGED TO MOVE EXTREMITIES IN ORDER TO REDUCE SWELLING BUT STS "I JUST CAN'T." INCISION TO MIDLINE ABD REMAINS WELL-DRESSED W/ QUINN DRESSING. WILL CONTINUE TO MONITOR & REPORT OFF TO ONCOMING RN.
[2021-06-14 18:56] LABS: Albumin, Blood 1.2 g/dL (3.4-5.0); Anion Gap 12 mmol/L (6-16); Blood Urea Nitrogen 36 mg/dL (8-24); Bun/Creatinine Ratio 11.3 (12.0-20.0); CO2, Blood 14 mmol/L (21-32); Calcium, Blood 7.5 mg/dL (8.5-10.1); Chloride, Blood 114 mmol/L (98-108); Creatinine, Blood 3.18 mg/dL (0.40-1.00); Glomerular Filtration Rate 15 (60-); Glucose, Blood 96 mg/dL (70-99); Phosphorus, Blood 5.3 mg/dL (2.5-4.9); Potassium, Blood 3.7 mmol/L (3.5-5.5); Sodium, Blood 140 mmol/L (136-145)
[2021-06-14 19:28] LABS: PCO2 Arterial 27.3 mmHg (35-45); PO2 Arterial 66.6 mmHg (80-100); pH Blood Arterial 7.29 (7.35-7.45)
--- NOTE | 2021-06-14 22:42 | NUR ---
ASSUMED CARE OF PT AT 1900, REPORT RECEIVED FROM GODWIN CHE. PT RESTING IN BED, AWAKE AND ORIENTED X4. COMPLAINING OF ABD PAIN 6, DENIES CHEST PAIN AT THIS TIME. HR 100-115'S, SBP 100'S WITH MAP >65. PORTILLO PATENT AND DRAINING TO GRAVITY. NS TKO INFUSING. ABG RESULTS CALLED TO DR VALENZUELA, NEW ORDERS PLACED. ABD TENDER, OSTOMY PINK AND MOIST WITH ABDOMINAL BINDER IN PLACE. EDEMA 2+ TO BUE & BLE. PT MORE AWAKE AND RESPONSIVE THIS ASSESSMENT THEN PRIOR SHIFT.
[2021-06-15 03:48] LABS: Hemoglobin 6.6 g/dL (11.5-16.0)
[2021-06-15 04:44] LABS: Albumin, Blood 1.6 g/dL (3.4-5.0); Anion Gap 11 mmol/L (6-16); Blood Urea Nitrogen 38 mg/dL (8-24); Bun/Creatinine Ratio 11.1 (12.0-20.0); CO2, Blood 16 mmol/L (21-32); Calcium, Blood 7.6 mg/dL (8.5-10.1); Chloride, Blood 114 mmol/L (98-108); Creatinine, Blood 3.43 mg/dL (0.40-1.00); Glomerular Filtration Rate 13 (60-); Glucose, Blood 88 mg/dL (70-99); Magnesium, Blood 1.8 mg/dL (1.6-2.4); Phosphorus, Blood 5.3 mg/dL (2.5-4.9); Potassium, Blood 3.7 mmol/L (3.5-5.5); Sodium, Blood 141 mmol/L (136-145)
--- NOTE | 2021-06-15 06:07 | NUR ---
SHIFT SUMMARY PT WITH MINIMAL SLEEP T/O NIGHT. / ABDOMINAL PAIN, PRN DILAUDID GIVEN. PT REMAINS ALERT AND ORIENTED X4. OSTOMY WITH ZERO OUTPUT THIS SHIFT, PORTILLO WITH 150 ML CLEAR YELLOW URINE. HR 100-120'S, SBP WITH MAP >65 T/O SHIFT, SPO2 >90% ON RA. PT WITH INCREASED ANXIETY THIS SHIFT, COOPERATIVE WITH CARE ONCE TALKED THROUGH WHAT WILL BE DONE. CURRENTLY INFUSING NS TKO AND BICARB AT 50 ML/HR. EDEMA TO BUE AND BLE, WEAKNESS NOTED T/O. ATTEMPTED TO CONTACT PT'S MICHELLE THIS AM TO DISCUSS POSSIBLE NEED FOR BLOOD PRODUCTS PT WOULD LIKE TO DECIDE IF SHE SHOULD RECEIVE ANY, PHONE DISCONNECTED. PT STATES NO OTHER NUMBER TO REACH AND IS UNSURE IF SHE WOULD LIKE BLOOD.
[2021-06-15 11:05] LABS: Hematocrit 20.3 % (33.0-51.0); Hemoglobin 6.5 g/dL (11.5-16.0); Mean Corpuscular HGB 29.1 pg (26.0-34.0); Mean Corpuscular Volume 91 fL (80-100); NRBC ABSOLUTE 0.02 K/mm3 (0.00-0.02); NRBC Auto 0.2 /100 WBC (0.0-0.2); Platelet Count 192 K/mm3 (150-400); RDW Coefficient Variation 15.4 % (11.7-14.2); RDW Standard Deviation 51.2 fL (35.1-46.3); Red Blood Cell Count 2.23 M/mm3 (3.80-5.20); White Blood Cell Count 10.28 K/mm3 (4.00-11.30)
[2021-06-15 12:12] LABS: BAND PERCENT MAN 7 % (0-8); BASOPHILS PERCENT MAN 0 % (0-2); EOSINOPHILS PERCENT MAN 0 % (0-6); LYMPHOCYTES ABSOLUTE MAN 0.51 K/mm3 (0.84-5.20); LYMPHOCYTES PERCENT MAN 5 % (21-46); METAMYELOCYTE PERCENT MAN 1 % (0-0); MONOCYTES ABSOLUTE MAN 0.41 K/mm3 (0.16-1.47); MONOCYTES PERCENT MAN 4 % (4-13); MYELOCYTE PERCENT MAN 2 % (0-0); NEUTROPHILS ABSOLUTE MAN 8.94 K/mm3 (1.96-9.15); PROMYELOCYTE PERCENT MAN 1 % (0-0); SEG NEUTROPHILS PERCENT MAN 80 % (41-73); TOTAL CELLS COUNTED 100
--- NOTE | 2021-06-15 16:16 | NUR ---
BLOOD UP AND HANGING, CALLED DR RIVERA. HE IS GOING TO START PUTTING IN COMFORT CARE ORDERS NOW.
--- NOTE | 2021-06-15 17:33 | NUR ---
PATIENT APPEARS TO BE HAVING NO BLOOD TRANSFUSION REACTION AT THIS TIME.
--- NOTE | 2021-06-15 18:15 | NUR ---
PATIENT IS NOW TRANSITIONED TO COMFORT CARE, FINISHING UP HER UNIT OF BLOOD. STILL AT BEDSIDE, HER SON SHOULD BE COMING IN TONIGHT TO VISIT PATIENT. HAS REQUESTED THAT VISITORS NOT SAY GOOD BYE TO HER UNTIL LEAVING AT END OF VISIT THEY LEAVE SO HER VISITS ARE HAPPY AND PLEASANT. MAIN GOAL IS TO HELP WITH PAIN MANAGEMENT AND HALLUCINATIONS. SHE IS CURRENTLY SEEING BUGS IN THE ROOM AND SHE DOES NOT LIKE BUGS.
--- NOTE | 2021-06-15 22:30 | NUR ---
ASSUMED CARE OF PT AT 1900, REPORT RECEIVED FROM BRANDY CHE. PT RESTING IN BED, TALKING TO PEOPLE NOT IN ROOM AND OCCASIONALLY MOANING AND YELLING OUT IN PAIN. PT FINISHING BLOOD TRANSFUSION WITHOUT ANY COMPLICATIONS. PT ALERT TO SELF, HAVING HALLUCINATIONS ABOUT ANIMALS AND BUGS BEING IN HER ROOM. NOT ANSWERING ALL ORIENTATION QUESTIONS. FOLLOWS SIMPLE COMMANDS. MOVEMENT NOTED TO ALL EXTREMITIES, WEAKNESS NOTED T/O. 2+ EDEMA IN BUE & BLE. PT COMFORT CARE, REMAINS ON MONITOR AT 'S REQUEST. HR 115'S, SBP 140'S, SPO2 >90% ON RA. PRN PAIN MEDICATIONS GIVEN PER ORDERS TO KEEP PT COMFORTABLE.
--- NOTE | 2021-06-16 05:40 | NUR ---
SHIFT SUMMARY PT RESTING COMFORTABLY, PRN MORPHINE AND DILAUDID GIVEN T/O NIGHT TO MINIMIZE PAIN. PT EASILY AWAKENS TO VERBAL STIMULI, ORIENTED TO SELF AND PLACE. OCCASIONALLY WILL HAVE CONVERSATIONS WTIH PEOPLE NOT IN THE ROOM AND WILL OCCASIONALLY SEE BUGS CRAWLING AROUND. PT CONTINUES ON MONITOR PER 'S REQUEST. HR REMAINS 100-120'S. NO VISITORS OR PHONE CALLS OVERNIGHT FOR UPDATES.
--- NOTE | 2021-06-16 10:00 | NUR ---
Care Assumed 0700 - COMFORT CARE Pt is A/O to being in hospital, unable to state exact date/event. Able to follow directions and able to state when in pain. Pt medications provided per emar per patients request. Dr. Mary and Dr. Lazaro in to see patient this morning, no new orders recieved. Call light within reach. Will continue to monitor.
--- NOTE | 2021-06-16 14:06 | NUR ---
Covering for primary RNIndia. Pt's family in to see pt. Pt awake and crying in pain, repeatedly stating "please God take the pain away". One time dose of 10 mg IV morphine given, t/o from Dr Mary in addition to existing orders for pain medication. 2 mg IV dilaudid given, 10 mg roxanol, additional 4 mg IV morphine given. At this time, pt is still awake, stating pain. Family at bedside educated on pain medication and reassessment period, states understanding and satisfaction with plan of care. Reported back to primary RN.
--- NOTE | 2021-06-16 16:24 | NUR ---
Met with pt's s/o this afternoon. He and Dr. Mary also had a discussion today as well about making the patient comfortable, as there are no viable treatment options for the pt outside of comfort care. He verbalized understanding, and returned to pt's side. I checked in with him, asked if he had any questions, and also to offer my condolences. He states he doesn't have questions, and just wants to make sure pt is out of pain. Bedside RN Marta brought prn pain medication in at point, and pt was speaking in word salad and slightly moaning. Pt now appears to be resting, brow no longer furrowed. I will remain available.
--- NOTE | 2021-06-16 16:39 | NUR ---
Update- Patient sleeping after being treated per emar with pain medication. Family at bedside, see comfort care assessments.
--- NOTE | 2021-06-16 19:45 | NUR ---
ASSUMPTION OF CARE NOTE: PT IS SLEEPING. NO S/S OF DISCOMFORT OR DISTRESS NOTED AT THIS TIME. PT IS A COMFORT CARE DNR.
--- NOTE | 2021-06-17 05:48 | NUR ---
SHIFT SUMMERY PT PAIN HAS BEEN WELL MANAGED THROUGHOUT THE NIGHT; SEE EMAR. PT IS RESTING COMFORTABLY WITH EYES CLOSED AT THIS TIME. NO FAMILY AT BEDSIDE.
--- NOTE | 2021-06-17 07:31 | NUR ---
PT OPENS EYES TO VERBAL STIMULI THIS AM, ANSWERS YES AND NO TO SOME QUESTIONS. PT. SHAKES HEAD NO TO PAIN AND YES TO BEING COMFORTABLE. ADJUSTED POSITION IN BED.
--- NOTE | 2021-06-17 09:51 | NUR ---
PT C/O PAIN, MED PER DR. GEIGER, FAMILY AT BEDSIDE, ICE WATER PROVIDED
--- NOTE | 2021-06-17 12:20 | NUR ---
LINEN CHANGED AND DOMINGO CARE COMPLETED. PT. MEDICATED FOR PAIN AND REPOSITIONED IN BED FOR PRESSURE RELIEF
--- NOTE | 2021-06-17 17:28 | NUR ---
SHIFT SUMMARY PT. CONTINUES RESTING COMFORTABLY IN BED, MED TWICE FOR PAIN THIS SHIFT. FAMILY AT BEDSIDE T/O DAY.
--- NOTE | 2021-06-17 18:17 | NUR ---
REPORT TO MEDICAL FLOOR RN PT AND BELONGINGS TRANSFERRED TO 359. FAMILY AWARE
--- NOTE | 2021-06-17 18:46 | NUR ---
TRANSFER SUMMARY PATIENT JUST ARRIVED TO UNIT FROM ICU. PATIENT IS A COMFORT CARE AND. PATIENT IS ALERT AND OPENS EYES WHEN MOVED AROUND AND MOANS. UNABLE TO VERBALLY SPEAK OR RESPOND. ON RA. RIGHT JUGULAR MALIK IN PLACE. COLOSTOMY TO LLQ, PORTILLO IN PLACE AND SMALL MIDLINE ABD INCISION IN PLACE WITH A BOXED ATTACHMENT. EXTREMELY EDEMATOUS GENERALIZED WITH PITTING 3-4+ NOTED. CLEAN SMALL AMOUNT OF BM FROM BUTTOCKS AND APPLIED PINK SACRUM MEPILEX TO AREA AFTER NOTED STAGE 2-3. WILL HAND OFF NOW TO NEW NURSE
--- NOTE | 2021-06-18 06:36 | NUR ---
SHIFT SUMMARY ASSUMED CARE AT 1900. PT REMAINS ON COMFORT MEASURES ONLY. NO ACUTE EVENTS OVERNIGHT. PT MEDICATED WHEN SHE COMPLAINS OF PAIN/MOANS WELL FOR ANXIETY PER EMAR. RIGHT IJ CENTRAL LINE WITH 4 LUMENS, SITE BENIGN, DRESSING INTACT. RUE POWERGLIDE IN PLACE, SITE BENIGN, DRESSING INTACT. PT REMAINS WITH EDEMA TO BUEs AND BLEs. HEELS FLOATED WITH PILLOW AND FOAM HEEL PROTECTORS APPLIED SINCE PT IS REFUSING LARGER BLACK HEEL PROTECTORS THAT SHE CAME FROM ICU WITH. RIGHT FOOT DROP NOTED. PT WITH LLQ COLOSTOMY, NO OUTPUT NOTED, STOMA PINK AND MOIST. VERTIVAL MID-ABDOMINAL SURGICAL INCISION WITH QUINN DRESSING INTACT. ABDOMINAL BINDER REMAINS IN PLACE. PORTILLO CATHETER IN PLACE, PATENT, DRAINING URINE VIA GRAVITY. PT OFFERED PO HYDRATION, OFTEN REFUSES. PT'S IS CURRENTLY AT BEDSIDE, HE WAS ALSO HERE LAST NIGHT WELL PT'S SON. BED ALARM REMAINS ACTIVATED, BED IS IN LOW POSITION WITH THE CALL LIGHT WITHIN EASY REACH.
--- NOTE | 2021-06-18 19:16 | NUR ---
SHIFT SUMMARY PATIENT WAS MOANING CONSULTING SERVICES PROJECT MANAGER AND ASKING FOR HELP UPON ARRIVALE. PAIN MEDS AND ATIVAN GIVEN TO HELP RELAX AND IT DID CALM HER DOWN A LOT. AT BEDSIDE. SHE APPEARS TO BE CALM AND RESTING AT THIS MOMENT. NO S/SX OF SOB OR RESTLESSNESS NOTED. ASSISTED TO TRY TO GIVE SMALL SIPS OF WATER AND TOLERATED. SWABS USED AND PATIENT REPOSITIONED EVERY 2 HOURS AND DIAPER CHECED. WILL RACHELT IN CARE
--- NOTE | 2021-06-19 06:41 | NUR ---
SHIFT SUMMARY ASSUMED CARE AT 1900. PT REMAINS ON COMFORT MEASURES ONLY. REMAINS LETHARGIC, PALE. MEDICATED FOR PAIN AND ANXIETY PRN PER EMAR, WITH GOOD EFFECT. RIGHT IJ CENTRAL LINE W/ 4 LUMENS AND RUE POWERGLIDE WITH DRESSINGS INTACT. PT OFFERED CLEAR LIQUIDS WITH MINIMAL CONSUMPTION. LLQ COLOSTOMY WITH NO OUTPUT. VERTICAL MID-ABDOMINAL SURGICAL INCISION WITH QUINN DRESSING INTACT. PORTILLO CATHETER PATENT, DRAINING URINE VIA GRAVITY. PT'S , MICHELLE, REMAINS AT BEDSIDE. BED IN LOW POSITON. WILL CONTINUE TO MONITOR.
--- NOTE | 2021-06-19 18:49 | NUR ---
SHIFT SUMMARY PATIENT IS UNRESPONSIVE VERBALLY AND RESPONDS TO LIGHT TACTILE TOUCH. LESS RESPONSIVE THAN YESTERDAY. MOANS OCCASIONALLY AND X3 TODAY WITH DOSES OF MORPHINE AND ATIVAN PER FAMILY REQUEST AT BEDSIDE. PORTILLO IN PLACE AND SMALL OUTPUT OF ABOUT 100CC. OSTOMY STILL WITH NO OUTPUT AND DSG TO ABD SATURATED AND REINFORCED. CHANGED POSITIONINGS EVERY 2 HOURS. WILL MONITOR IN CARE. CONTINUES TO FOLLOW COMFORT MEASURES
--- NOTE | 2021-06-20 06:08 | NUR ---
SHIFT SUMMARY ASSUMED CARE AT 1900. NO ACUTE EVENTS OVERNIGHT. REMAINS ON COMFORT CARE ONLY. PT NOT VERBALLY RESPONSIVE; RESPONDS TO LIGHT TACTILE AND VOICE STIMULI. OCCASIONALLY MOANS, TENSES UP AND BECOMES RESTLESS, MEDICATED PRN PER EMAR WITH GOOD EFFECT. LLQ COLOSTOMY WITH NO OUTPUT. ABDOMINAL SURGICAL INCISION WITH QUINN DRESSING INTACT. PORTILLO CATHETER IN PLACE AND DRAINING YELLOW URINE; URINE OUTPUT HAS DECREASED. PT OFFERED PO FLUIDS AND MOISTENED ORAL SWAB. TURNED/REPOSITIONED. , MICHELLE, REMAINS AT BEDSIDE. WILL CONTINUE TO MONITOR.
--- NOTE | 2021-06-20 09:42 | NUR ---
PT CURRENTLY ASLEEP AND LOOKS COMFORTABLE. WAS AT BEDSIDE BUT LEFT AND WILL POSSIBLY BE BACK LATER.
--- NOTE | 2021-06-20 11:45 | NUR ---
OSTOMY LEAKING INTO MIDLINE DRESSING. QUINN DRESSING CHANGED DUE TO DRAINAGE. OSTOMY DEVICE CHANGED AT THIS TIME WELL.
--- NOTE | 2021-06-20 17:08 | NUR ---
SHIFT SUMMARY PT SLEEPING FOR THE MAJORITY OF THE SHIFT. IT WAS NOTED THAT THE PATIENT'S OSTOMY WAS DRAINING OVER ONTO HER MIDLINE QUINN DRESSING. MIDLINE QUINN AND OSTOMY DEVICE CHANGED. DRESSING HAS A HARD TIME SEALING DUE TO OSTOMY PLACEMENT. HOWEVER, DRAINAGE SEEMS TO BE COMING FROM STOMA SITE AND NOT THE INCISION. AND SON AT THE BEDSIDE. MEDICATED FOR PAIN AND ANXIETY. POSSIBLE DC HOME ON HOSPICE.
--- NOTE | 2021-06-20 21:42 | NUR ---
PT'S REMAINS AT BEDSIDE. HE'D INITIALLY FELT SHE WAS COMFORTABLE AT START OF SHIFT BUT THEN ALERTED STAFF OF MOANING AND GRIMACING. 5MG IV MORPHINE ADMINISTERED BY ELIS Gustafson AT THAT TIME, WILL MONITOR FOR AFFECT.
--- NOTE | 2021-06-20 22:15 | NUR ---
THIS RN ROUNDED TO ASSESS FOR PAIN RELIEF AND PT'S EXPRESSED WANTING HER TO RECIEVE ATIVAN W/MORPHINE D/T OBSERVATING JEFFERY MEDS WEREN'T EFFECTIVE WHEN GIVEN SEPARATELY. ATIVAN 1MG IV PRN RECIEVED AT THIS TIME, WILL MONITOR FOR AFFECT. STAFF ASSURED WE'D ATTEMPT TO GIVE MEDS TOGETHER INDICATED WHEN POSSIBLE. NO FURTHER COMPLAINTS AT THIS TIME.
--- NOTE | 2021-06-20 23:00 | NUR ---
PT RESTING COMFORTABLY W/O S/S DISTRESS AFTER RECIEVING PRN MORPHINE AND ATIVAN. TURN SCHEDULE BEING MAINTAINED. OSTOMY + APPARATUS ARE INTACT W/SCANT AMT OF LIQ OUTPUT. QUINN DX TO MIDLINE OF ABDO ALSO REMAINS C/D/I W/NO DRAINAGE OBSERVED. DAY RN CHANGED APPARATUS AND DX ON DAY SHIFT. WCTM.
--- NOTE | 2021-06-21 05:07 | NUR ---
SUMMARY: PT REMAINS ON COMFORT MEASURES W/ AT BEDSIDE. SHE'S MOSTLY NONRESPONSIVE BUT OPENS EYES/AND NODS HEAD GRADUALLY AT TIMES TO VOICE. OCC MOANS/GRIMACES OBSERVED. 5MG MORPHINE AND 1MG ATIVAN RECIEVED T/O NOCTE FOR S/S PAIN AND ANXIETY. PT'S PREFERS MEDS ARE ADMINISTERED TOGETHER FOR BETTER RELIEF. QUINN DX C/D/I TO MIDLINE INCISION, NO DRAINAGE OBSERVED. OSTOMY AND APPARATUS INTACT W/SCANT BROWN LIQ OP THIS SHIFT. DX AND OSTOMY CHANGED 06/20/21. PORTILLO PATENT/DRAINING. TURN SCHEDULED MAINTAINED FOR DECUB COCCYX ULCER. WCTM AND REPORT TO DAY RN.
--- NOTE | 2021-06-21 08:13 | NUR ---
PATIENT ON COMFORT CARE. PATIENT RESTING COMFORTABLY. NO PAIN MEDICATION NEEDED AT THIS TIME.
--- NOTE | 2021-06-21 10:46 | NUR ---
PATIENT ON COMFORT CARE. AT BEDSIDE WITH PATIENT. PATIENT MOANING AND FACIAL GRIMACING. MEDICATED PER MAR. WILL CONTINUE TO MONITOR.
--- NOTE | 2021-06-21 14:49 | NUR ---
PATIENT ON COMFORT CARE. PATIENT MOANING AND GRIMACING. MEDICATION GIVEN PER MAR.
--- NOTE | 2021-06-21 18:08 | NUR ---
PATIENT ON COMFORT CARE. PATIENT'S IS AT BEDSIDE. PROVIDING PAIN MEDICATION PER MAR. WILL CONTINUE TO MONITOR PATIENT.
--- NOTE | 2021-06-21 18:26 | NUR ---
SHIFT SUMMARY PATIENT ON COMFORT CARE WITH AT BEDSIDE. PATIENT IS NONRESPONSIVE BUT WILL PARITALLY OPEN EYES TO STIMULUS. PATIENT WOULD MOAN AND GRIMACE. PREFERRED THAT PATIENT RECEIVE BOTH PAIN AND ANXIETY MEDICATION AT THE SAME TIME STATING SHE HAD BETTER RELIEF. MEDICATED PATIENT WITH MORPHINE AND ATIVAN PER MAR THROUGHOUT SHIFT. PATIENT QUINN DRESSING IS CLEAN, DRY AND INTACT. PATIENT OSTOMY DRESSING IS IN PLACE WITH LITTLE OUTPUT. ABDOMINAL BINDER IS PLACED LOOSLY ON PATIENT. PATIENT PORTILLO IS PATENT AND DRAINING. WILL CONTINUE TO MONITOR.
--- NOTE | 2021-06-21 20:00 | NUR ---
COMFORT CARE APPEARS TO BE RESTING WITH NO CURRENT NEEDS. AND SON AT BEDSIDE. BED IN LOWEST
--- NOTE | 2021-06-22 | NUR ---
COMFORT CARE MOANING. BREATHING HEAVIER THAN PREVIOUS. MEDICATED PER EMAR FOR PAIN/ANXIETY. REMAINS AT BEDSIDE. NO OTHER NEEDS AT THIS TIME. TURN AND REPOSITION SHORTLY. BED IN LOWEST POSITION.
--- NOTE | 2021-06-22 04:00 | NUR ---
COMFORT CARE APPEARS TO BE SLIGHTLY RESTLESS. MEDICATED PER HUSBANDS WISHES. REMAINS AT BEDSIDE. BED IN LOWEST. CALL LIGHT WITHIN THEIR REACH
--- NOTE | 2021-06-22 06:25 | NUR ---
SHIFT SUMMARY RESPONSIVE TO PAINFUL STIMULI. MOANING AND GRIMACE /c REPOSITIONING. REMAINED AT BEDSIDE T/O NIGHT. MEDICATED PER EMAR FOR PAIN/ANXIETY. EFFECTIVE. NO OTHER ACUTE CHANGES NOTED. BED IN LOWEST POSITION. REPORT TO ONCOMING RN.
--- NOTE | 2021-06-22 10:10 | NUR ---
PATIENT ON COMFORT CARE. AT BEDSIDE. PATIENT MOANING AND GRIMACING. MEDICATED PER MAR. FEELS COMBINATION OF ATIVAN AND MORPHINE GIVEN TOGETHER GIVES MOST RELIEF FOR PATIENT. CHANGED COLOSTOMY BAG. REPOSITIONED PATIENT SLIGHTLY MOVEMENT CAUSES SEVERE DISCOMFORT. WILL CONTINUE TO MONITOR.
--- NOTE | 2021-06-22 10:13 | NUR ---
PATIENT ON COMFORT CARE WITH SON AT BEDSIDE. PATIENT RESTING COMFORTABLY. NO MEDICATION NEEDED AT THIS TIME. WILL CONTINUE TO MONITOR.
[2021-06-22] MEDS ORDERED: NITR.4SL SL (12:33)
[2021-06-22] MEDS ORDERED: SYNTHROID125 MC1 PO (12:33)
[2021-06-22] MEDS ORDERED: OMEP20ER PO (12:34)
[2021-06-22] MEDS ORDERED: Ondansetron Odt8 MG MM (12:35)
[2021-06-22] MEDS ORDERED: OXYC10TA19 PO (12:35)
[2021-06-22] MEDS ORDERED: Phenergan25 M1 PO (12:36)
--- NOTE | 2021-06-22 12:57 | NUR ---
PATIENT ON COMFORT CARE. PATIENT MEDICATED WITH ATIVAN AND MORPHINE BEFORE REPOSITIONING. PATIENT STILL EXPERIENCED DISCOMFORT DURING REPOSITIONING BUT SETTLED DOWN SOON DONE. SON STEPPED OUT BUT IS NOW BACK AT BEDSIDE.
--- NOTE | 2021-06-22 14:40 | NUR ---
COMFORT CARE PATIENT RESTING IN BED WITH SON AT BEDSIDE. PATIENT MOANING, MEDICATED WITH MORPHINE.
--- NOTE | 2021-06-22 16:51 | NUR ---
COMFORT CARE PATIENT RESTING IN BED WITH SON AND AT BESIDE. PATIENT MOANING, MEDICATED WITH BOTH MORPHINE AND ATIVAN. NOTED SLIGHT LEAK ON SIDE OF POWERGLIDE DRESSING. ATTEMPTED DRESSING CHANGE BUT IV NO LONGER FLUSHING AND D/C'D. PATIENT TOLERATED WITH LITTLE DISCOMFORT.
--- NOTE | 2021-06-22 16:57 | NUR ---
Provided emotional support and medication education to pt's . Answered his questions. Tova appears comfortable during this visit.
--- NOTE | 2021-06-22 18:44 | NUR ---
SHIFT SUMMARY PATIENT IS ON COMFORT CARE. PATIENT'S AND SON HAVE BEEN AT BEDSIDE MOST OF THE DAY. PATIENT IS RECEIVING MORPHINE AND ATIVAN GIVEN AT THE SAME TIME PER THE HUSBANDS REQUEST. PATIENT'S IV BEGAN LEAKING TOWARDS END OF SHIFT AND UPON DRESSING CHANGE NO LONGER WORKED AND D/C'D. PATIENT'S FAMILY IS CONCERNED ORAL MEDICATION WILL NOT BE EFFECTIVE AT RELIEVING HER PAIN. PALLATIVE CARE CAME TO REASSURE FAMILY. WILL CONTINUE TO MONITOR
--- NOTE | 2021-06-23 08:55 | NUR ---
PT COMFORTABLY SLEEPING AT THIS TIME WITH AT BEDSIDE.
--- NOTE | 2021-06-23 10:50 | NUR ---
PT'S MIDLINE DRESSING CHANGED TO A MEDIPORE DRESSING AND OSTOMY DEVICE CHANGED WELL. DRAINAGE NOTED ON DRESSING AND OSTOMY SITE. STOMA BLEEDING AND SKIN IRRITATED. SOAKED ABD BINDER REMOVED WELL. PT REPOSITIONED AND MEDICATED FOR PAIN. FAMILY AT BEDSIDE.
--- NOTE | 2021-06-23 17:54 | NUR ---
Pt appears comfortable, she is no longer waking. Agonal breathing noted, no grimacing. Family at bedside, agree that pt looks so VERY comfortable. No changes needed to care plan at this time.
--- NOTE | 2021-06-23 18:16 | NUR ---
SHIFT SUMMARY PT NON-RESPONSIVE AND POSSIBLY IMMINENT. OSTOMY DEVICE AND INCISION DRESSING CHANGED DUE TO DRAINAGE. MEDIPORE DRESSING IN PLACE AND [facility]I. PT HAVING MORE SECRETIONS AND SUCTIONED PRN. BREATHING BECOMING MORE LABORED. AND SON AT THE BEDSIDE T/O THE DAY. CURRENTLY RESTING COMFORTABLY IN BED WITH HER CALL LIGHT IN REACH.
--- NOTE | 2021-06-23 19:05 | NUR ---
PT PASSED AT 1850. FIGURINE MAKER NOTIFIED AND CALLING ON-CALL MORTUARY. AND SON AT BEDSIDE.
--- NOTE | 2021-06-23 20:03 | NUR ---
PT pronounced with 2 RNS 1850 Son & Spouse at Bedside. DR Ding & superintendent schools Lizbeth informed. No valuables with PT. Mortuary chosen by Family.
== END 2021-06-23 18:50 | DRG 853 ==
LOC: ER 15:17 → ICUE 18:06 → ERHOLD 18:06 → ICUE 22:21 → MEDS 06-17 18:20
PROVIDERS: Emergency Medicine; Family Medicine; Internal Medicine; Internal Medicine Nephrology; Nurse Practitioner Acute Care; ADMIT Internal Medicine
PROC: 8E0ZXY6 Isolation (ICD-10-PCS; 2021-06-12)
PROC: 0D1L0Z4 Bypass Transverse Colon to Cutaneous, Open Approach (ICD-10-PCS; principal; 2021-06-13)
PROC: 0DBM0ZZ Excision of Descending Colon, Open Approach (ICD-10-PCS; 2021-06-13)
PROC: 0DBL0ZZ Excision of Transverse Colon, Open Approach (ICD-10-PCS; 2021-06-13)
PROC: 02HV33Z Insertion of Infusion Device into Superior Vena Cava, Percutaneous Approach (ICD-10-PCS; 2021-06-13)
PROC: B548ZZA Ultrasonography of Superior Vena Cava, Guidance (ICD-10-PCS; 2021-06-13)
PROC: 3E043XZ Introduction of Vasopressor into Central Vein, Percutaneous Approach (ICD-10-PCS; 2021-06-13)
DX: A41.9 Sepsis, unspecified organism (principal); R65.21 Severe sepsis with septic shock; K63.1 Perforation of intestine (nontraumatic); I50.22 Chronic systolic (congestive) heart failure; F11.20 Opioid dependence, uncomplicated; Z51.5 Encounter for palliative care; Z66 Do not resuscitate; N17.9 Acute kidney failure, unspecified; N25.81 Secondary hyperparathyroidism of renal origin; E87.2 Acidosis; I13.0 Hypertensive heart and chronic kidney disease with heart failure and stage 1 through stage 4 chronic kidney disease, or unspecified chronic kidney disease; N18.4 Chronic kidney disease, stage 4 (severe); G93.1 Anoxic brain damage, not elsewhere classified; E46 Unspecified protein-calorie malnutrition; Z68.1 Body mass index [BMI] 19.9 or less, adult; Z20.822 Contact with and (suspected) exposure to COVID-19; E87.6 Hypokalemia; E83.42 Hypomagnesemia; I48.0 Paroxysmal atrial fibrillation; D69.6 Thrombocytopenia, unspecified; K52.9 Noninfective gastroenteritis and colitis, unspecified; E88.09 Other disorders of plasma-protein metabolism, not elsewhere classified; E83.39 Other disorders of phosphorus metabolism; E03.9 Hypothyroidism, unspecified; G89.4 Chronic pain syndrome; M54.50 Low back pain, unspecified; I25.5 Ischemic cardiomyopathy; D63.1 Anemia in chronic kidney disease; I25.10 Atherosclerotic heart disease of native coronary artery without angina pectoris; Z28.21 Immunization not carried out because of patient refusal; Z90.49 Acquired absence of other specified parts of digestive tract; Z87.891 Personal history of nicotine dependence; Z99.2 Dependence on renal dialysis; Z95.5 Presence of coronary angioplasty implant and graft; Z98.890 Other specified postprocedural states; Z79.02 Long term (current) use of antithrombotics/antiplatelets; Z79.82 Long term (current) use of aspirin; Z79.899 Other long term (current) drug therapy; Z88.2 Allergy status to sulfonamides; Z88.1 Allergy status to other antibiotic agents; Z91.041 Radiographic dye allergy status
CPT/HCPCS: 0241U; 36415; 36430; 36556; 36600; 51701; 71045; 74176; 80048; 80053; 80069; 81001; 82803; 83605; 83690; 83735; 84100; 84443; 84484; 85014; 85018; 85025; 85610; 86850; 86900; 86901; 86923; 87040; 87086; 88307; 93005; 93010; 94760; 96365; 96375; 96376; 99285-25; A9270; C1751; J0881; J1100; J1170; J1630; J1650; J1956; J2060; J2250; J2270; J2405; J2543; J2704; J2710; J3010; J3475; J3480; J7030; J7050; J7060; J7070; P9016; P9041; P9046